=== PATIENT | female | born 1935 | race Caucasian/White ===

== ENCOUNTER 2017-09-04 08:42 | Inpatient (IN) | payer MEDICARE, BC ==
[2017-09-04] MEDS ORDERED: Cholecalciferol (Vitamin D3) 1,000 Unit Tab PO PRN (16:39)
[2017-09-04] MEDS: Insulin Aspart 100 Units/ML 3 ML Pen SUBCUT SCH ×3 (18:34→23:06)
[2017-09-04] MEDS: traMADol 50 MG Tab PO PRN (20:04)
[2017-09-04] MEDS: Warfarin 2 MG Tab PO SCH (20:06)
[2017-09-04] MEDS: Rosuvastatin 10 MG Tab PO SCH (20:07)
[2017-09-04] MEDS: Gabapentin 100 MG Cap PO SCH (20:07)
[2017-09-04] MEDS: Omeprazole 20 MG Cap.CR PO SCH (20:08)
[2017-09-04] MEDS: Montelukast 10 MG Tab PO SCH (20:08)
[2017-09-04] MEDS: Cholecalciferol (Vitamin D3) 1,000 Unit Tab PO SCH (20:08)
[2017-09-04] MEDS: Fluticasone Propionate 110 MCG/Puff 12 GM Inhaler INH SCH (20:16)
[2017-09-04] MEDS ORDERED: [UNRECOGNIZED DRUG - REMARK] SQ SCH (21:00)
[2017-09-05] MEDS: traMADol 50 MG Tab PO PRN ×4 (03:48→17:36)
[2017-09-05] MEDS: Metoprolol Succinate 25 MG Tab.ER PO SCH (08:29)
[2017-09-05] MEDS: Multivitamins with Minerals/Iron/Folic Acid/Lycopene Tab PO SCH (08:29)
[2017-09-05] MEDS: amLODIPine 2.5 MG Tab PO SCH (08:31)
[2017-09-05] MEDS: Gabapentin 100 MG Cap PO SCH ×2 (08:31→20:47)
[2017-09-05] MEDS: Fluticasone Propionate 110 MCG/Puff 12 GM Inhaler INH SCH ×2 (08:32→20:48)
[2017-09-05] MEDS: Insulin Aspart 100 Units/ML 3 ML Pen SUBCUT SCH ×4 (08:32→21:36)
[2017-09-05] MEDS: Insulin Detemir 100 Units/ML 3 ML Pen SUBCUT SCH (08:39)
[2017-09-05] MEDS ORDERED: Non-Formulary Medication 1 Each (Multivit-Min/Fa/Lycopene/Lut [Centrum Silver Tablet] 1 TA PO SCH (09:00)
[2017-09-05] MEDS: Warfarin 2 MG Tab PO SCH (18:08)
[2017-09-05] MEDS: Rosuvastatin 10 MG Tab PO SCH (20:47)
[2017-09-05] MEDS: Omeprazole 20 MG Cap.CR PO SCH (20:47)
[2017-09-05] MEDS: Montelukast 10 MG Tab PO SCH (20:47)
[2017-09-05] MEDS: Cholecalciferol (Vitamin D3) 1,000 Unit Tab PO SCH (20:47)
[2017-09-06] MEDS: traMADol 50 MG Tab PO PRN (01:20)
[2017-09-06] MEDS: Insulin Aspart 100 Units/ML 3 ML Pen SUBCUT SCH ×4 (09:50→21:00)
[2017-09-06] MEDS: Fluticasone Propionate 110 MCG/Puff 12 GM Inhaler INH SCH ×3 (09:55→20:47)
[2017-09-06] MEDS: Multivitamins with Minerals/Iron/Folic Acid/Lycopene Tab PO SCH (12:53)
[2017-09-06] MEDS: Gabapentin 100 MG Cap PO SCH ×2 (12:53→20:48)
[2017-09-06] MEDS: Metoprolol Succinate 25 MG Tab.ER PO SCH (12:59)
[2017-09-06] MEDS: Insulin Detemir 100 Units/ML 3 ML Pen SUBCUT SCH (13:00)
[2017-09-06] MEDS: amLODIPine 2.5 MG Tab PO SCH (13:00)
--- NOTE | 2017-09-06 14:04 | PCM.HP ---
H&P History of Present Illness - General Admit Problem/Dx: Admission Diagnosis/Problem Admission Diagnosis/Problem Left Total Knee Replacement Source of Information: Patient History Limitations: Reports: No Limitations - History of Present Illness Symptom Onset Date: 09/01/17 (Left TKA 09/01/17) Location: Reports: Lower Extremity, Left (L)TKA) Left Knee Pain Score (Numeric/FACES): 5 - Related Data Allergies/Adverse Reactions: Allergies Allergy/AdvReac Type Severity Reaction Status Date / Time metformin HCl Allergy Unknown Cannot Verified 09/04/17 13:33 [From Glucophage] Remember ampicillin Allergy Hives Verified 09/04/17 13:33 cefadroxil Allergy Blurred Verified 09/04/17 13:33 Vision naproxen sodium [From Aleve] Allergy Itching Verified 09/04/17 13:33 rivaroxaban [From Xarelto] Allergy Blurred Verified 09/04/17 13:33 Vision shellfish derived Allergy Hives Verified 09/04/17 13:33 decongestants Allergy Syncope Uncoded 09/04/17 13:33 Home Medications: Home Meds Montelukast [Singulair] 10 mg PO BEDTIME 05/25/14 [History] Omeprazole 20 mg PO BEDTIME 05/25/14 [History] Fluticasone Propionate [Flovent HFA 110 MCG] 2 puff PO BID 07/22/16 [History] Gabapentin [Neurontin] 200 mg PO BID 07/22/16 [History] Insulin Degludec [Tresiba Flextouch U-100] 34 units SQ BEDTIME 07/22/16 [History ] Rosuvastatin [Crestor] 20 mg PO BEDTIME 07/22/16 [History] SitaGLIPtin [Januvia] 50 mg PO DAILY 07/22/16 [History] Valsartan 80 mg PO BEDTIME 07/22/16 [History] amLODIPine [Norvasc] 2.5 mg PO DAILY 07/22/16 [History] Metoprolol Succinate [Toprol XL] 12.5 mg PO DAILY 09/03/17 [History] Rup Rub 1 mg TOP BID 09/03/17 [History] Cholecalciferol (Vitamin D3) [Vitamin D3] 1,000 unit PO BEDTIME 09/04/17 [ History] Multivit-Min/FA/Lycopene/Lut [Centrum Silver Tablet] 1 tab PO DAILY 09/04/17 [ History] Sennosides/Docusate Sodium [Senna S Tablet] 2 tab PO DAILY 09/04/17 [History] Warfarin [Coumadin] 2 mg PO BEDTIME 09/04/17 [History] traMADol [Ultram] 50 - 100 mg PO Q6H PRN 09/04/17 [History] Past Medical History HEENT History: Reports: Cataract, Impaired Vision Cardiovascular History: Reports: Blood Clots/VTE/DVT, CAD, High Cholesterol, Hypertension Respiratory History: Reports: Pneumothorax, SOB Gastrointestinal History: Reports: GERD Genitourinary History: Reports: Renal Disease [employer] History: Reports: , Prolapsed Uterus Musculoskeletal History: Reports: Arthritis, Osteoarthritis, Osteoporosis Neurological History: Reports: Migraines, Neuropathy, Peripheral Endocrine/Metabolic History: Reports: Diabetes, Type II, Obesity/BMI 30+, Osteoporosis, Vitamin D Deficiency Oncologic (Cancer) History: Reports: Lung, Other (See Below) Other Oncologic History: left lung cancer, lower lobectomy - Infectious Disease History Infectious Disease History: Reports: Chicken Pox, Influenza, Measles, Mumps, Shingles - Past Surgical History HEENT Surgical History: Reports: Cataract Surgery Respiratory Surgical History: Reports: Lung Resection, Thoracotomy GI Surgical History: Reports: Appendectomy, Cholecystectomy, Colonoscopy Female Surgical History: Reports: Hysterectomy, Oophorectomy, Other (See Below) Neurological Surgical History: Reports: None Musculoskeletal Surgical History: Reports: Hip Replacement, Knee Replacement, Shoulder Replacement, Shoulder Surgery Other Musculoskeletal Surgeries/Procedures:: s/p LTKA here for swingbed Social & Family History - Family History Family Medical History: Noncontributory - Tobacco Use Smoking Status *Q: Former Smoker Years of Tobacco use: 20 Used Tobacco, but Quit: Yes Month Tobacco Last Used: Oct Second Hand Smoke Exposure: No - Caffeine Use Caffeine Use: Reports: Coffee - Alcohol Use Days Per Week of Alcohol Use: 0 - Recreational Drug Use Recreational Drug Use: No H&P Review of Systems - Review of Systems: Review Of Systems: See Below General: Reports: Other (Generalized feeling poorly after anesthesia with poor appetite, stomach doesn't feel good.) HEENT: Reports: No Symptoms Pulmonary: Reports: No Symptoms Cardiovascular: Reports: No Symptoms Gastrointestinal: Reports: Other (constipation and upset stomach. Improved after BM) Genitourinary: Reports: No Symptoms Musculoskeletal: Reports: Other (S/P Left TKA.) Skin: Reports: Other (Surgical inscision and knee swelling) Psychiatric: Reports: No Symptoms Neurological: Reports: No Symptoms Hematologic/Lymphatic: Reports: No Symptoms Immunologic: Reports: No Symptoms Exam - Exam Exam: See Below - Vital Signs Vital Signs: Last Vital Signs Temp 98.1 F 09/06/17 12:56 Pulse 86 09/06/17 12:59 Resp 16 09/06/17 12:56 BP 168/71 H 09/06/17 13:00 Pulse Ox 98 09/06/17 12:56 Weight: 195 lb 8 oz - Exam General: Alert, Oriented, Cooperative HEENT: Hearing Intact, Mucosa Moist & [place] Neck: Supple, Lymphadenopathy Lungs: Clear to Auscultation, Normal Respiratory Effort Cardiovascular: Regular Rate, Regular Rhythm, Normal S1, Normal S2 GI/Abdominal Exam: Soft, Non-Tender, No Distention Extremities: Other (wearing tavo support hose. Left knee with cold cirulation in place. Extremities with trace edema.) Skin: Other (incision not visualized) Neuro Extensive - Mental Status: Alert, Oriented x3, Normal Mood/Affect, Normal Cognition Psychiatric: Alert, Normal Affect, Normal Mood - Patient Data Lab Results Last 24 hrs: Laboratory Results - last 24 hr 09/05/17 09/05/17 09/06/17 Range/Units 17:35 20:43 06:53 POC Glucose 136 H 128 H 129 H (74-106) mg/dl Jamar Results Last 24 hrs: Microbiology 09/05/17 09:00 Wound Culture - Preliminary Knee, Left NO GROWTH AFTER 1 DAY *Q Meaningful Use (ADM) - VTE *Q VTE Criteria *Q: - Stroke *Q Stroke Criteria *Q: - AMI *Q AMI Criteria *Q: Problem List Initiated/Reviewed/Updated: Yes Orders Last 24hrs: Active Orders 24 hr Category Date Time Status INR,PT,PROTHROMBIN TIME [COAG] Routine Lab 09/07/17 05:00 Ordered Medication Orders Amlodipine Besylate (Norvasc) 2.5 mg PO DAILY [facility] Last Admin: 09/06/17 13:00 Dose: 2.5 mg Admin: 09/05/17 08:31 Dose: 2.5 mg Cholecalciferol (Vitamin D3) 1,000 units PO BEDTIME [facility] Last Admin: 09/05/17 20:47 Dose: 1,000 units Admin: 09/04/17 20:08 Dose: 1,000 units Fluticasone Propionate (Flovent Hfa 110 Mcg) 0 gm INH BIDRT [facility] Last Admin: 09/06/17 13:02 Dose: 2 puff Admin: 09/06/17 09:55 Dose: Not Given Admin: 09/05/17 20:48 Dose: 2 puff Admin: 09/05/17 08:32 Dose: 2 puff Admin: 09/04/17 20:16 Dose: 2 puff Gabapentin (Neurontin) 200 mg PO BID [facility] Last Admin: 09/06/17 12:53 Dose: 200 mg Admin: 09/05/17 20:47 Dose: 200 mg Admin: 09/05/17 08:31 Dose: 200 mg Admin: 09/04/17 20:07 Dose: 200 mg Insulin Aspart (Novolog) 0 unit SUBCUT WITHMEALSANDBED [facility] PRN Reason: Protocol Last Admin: 09/06/17 13:02 Dose: Admin: 09/06/17 09:50 Dose: Admin: 09/05/17 21:36 Dose: Admin: 09/05/17 17:37 Dose: Admin: 09/05/17 12:05 Dose: 1 unit Admin: 09/05/17 08:32 Dose: Admin: 09/04/17 23:06 Dose: Not Given Admin: 09/04/17 20:53 Dose: 1 unit Admin: 09/04/17 18:34 Dose: Insulin Detemir (Levemir) 20 unit SUBCUT DAILY [facility] Last Admin: 09/06/17 13:00 Dose: 20 unit Admin: 09/05/17 08:39 Dose: 20 unit Metoprolol Succinate (Toprol Xl) 12.5 mg PO DAILY [facility] Last Admin: 09/06/17 12:59 Dose: 12.5 mg Admin: 09/05/17 08:29 Dose: 12.5 mg Montelukast Sodium (Singulair) 10 mg PO BEDTIME [facility] Last Admin: 09/05/17 20:47 Dose: 10 mg Admin: 09/04/17 20:08 Dose: 10 mg Multivitamins/Minerals (Centrum) 1 tab PO DAILY [facility] Last Admin: 09/06/17 12:53 Dose: Not Given Admin: 09/05/17 08:29 Dose: 1 tab Non-FormRup Rub (1 Mg) 1 mg TOP BID [facility] Omeprazole (Omeprazole) 20 mg PO BEDTIME [facility] Last Admin: 09/05/17 20:47 Dose: 20 mg Admin: 09/04/17 20:08 Dose: 20 mg Rosuvastatin Calcium (Crestor) 20 mg PO BEDTIME [facility] Last Admin: 09/05/17 20:47 Dose: 20 mg Admin: 09/04/17 20:07 Dose: 20 mg Senna/Docusate Sodium (Senna Plus) 2 tab PO DAILY [facility] Last Admin: 09/06/17 12:53 Dose: Not Given Admin: 09/05/17 08:29 Dose: 2 tab Sitagliptin Phosphate (Januvia) 50 mg PO DAILY [facility] Last Admin: 09/06/17 12:52 Dose: 50 mg Admin: 09/05/17 08:31 Dose: 50 mg Tramadol HCl (Ultram) 50 - 100 mg PO Q6H PRN PRN Reason: Pain Last Admin: 09/06/17 01:20 Dose: 50 mg Admin: 09/05/17 17:36 Dose: 50 mg Admin: 09/05/17 10:30 Dose: 50 mg Admin: 09/05/17 08:40 Dose: 50 mg Admin: 09/05/17 03:48 Dose: 50 mg Admin: 09/04/17 20:04 Dose: 50 mg Valsartan (Diovan) 80 mg PO BEDTIME [facility] Last Admin: 09/05/17 20:46 Dose: 80 mg Admin: 09/04/17 20:07 Dose: 80 mg Warfarin Sodium (Coumadin) 2 mg PO DAILY@1800 [facility] Last Admin: 09/05/17 18:08 Dose: 2 mg Admin: 09/04/17 20:06 Dose: 2 mg Assessment/Plan Comment:: Pt is admitted to Swing bed 09/04/17 for rehab status post L)TKA 09/01/[address] Worthington in [place]. She will be receiving PT. She is on coumadin for DVT prophylaxis. 1) L) TKA: PT for rehab. cold circulation for edema, coumadin for DVT prophylaxis, tramadol prn pain. 2. Hypertension: stable. Continue Valsartan 80 mg at hs, metoprolol succinate 12.5 mg daily, amlodipine 2.5 mg daily. 3. Diabetes mellitus with peripheral neuropathy: Continue levemir 20 units as she was on in [facility]. sitagliptin and Novolog low dose sliding scale. Pt had been on Tresiba 34 units at home but states her appetite is very poor, she is not eating well after anesthesia. Bedside Blood sugars have been 128-137. Continue gabapentin for peripheral neuropathy 4. Hyperlipidemia: continue crestor 5. GERD: continue omeprazole. 6. Osteopenia: continue Vitamin D3 7. Constipation on opioids: continue Ducosate 8. Seasonal allergies with nasal congestions: continue flonase and montelukast
[2017-09-06] MEDS: Warfarin 2 MG Tab PO SCH (18:09)
[2017-09-06] MEDS: Rosuvastatin 10 MG Tab PO SCH (20:47)
[2017-09-06] MEDS: Montelukast 10 MG Tab PO SCH (20:47)
[2017-09-06] MEDS: Omeprazole 20 MG Cap.CR PO SCH (20:48)
[2017-09-06] MEDS: Cholecalciferol (Vitamin D3) 1,000 Unit Tab PO SCH (20:52)
[2017-09-07] MEDS: Insulin Detemir 100 Units/ML 3 ML Pen SUBCUT SCH (08:30)
[2017-09-07] MEDS: Metoprolol Succinate 25 MG Tab.ER PO SCH (08:31)
[2017-09-07] MEDS: amLODIPine 2.5 MG Tab PO SCH (08:32)
[2017-09-07] MEDS: Gabapentin 100 MG Cap PO SCH ×2 (08:32→20:51)
[2017-09-07] MEDS: traMADol 50 MG Tab PO PRN ×2 (08:32→20:51)
[2017-09-07] MEDS: Multivitamins with Minerals/Iron/Folic Acid/Lycopene Tab PO SCH (08:32)
[2017-09-07] MEDS: Insulin Aspart 100 Units/ML 3 ML Pen SUBCUT SCH ×4 (08:37→20:59)
[2017-09-07] MEDS: Fluticasone Propionate 110 MCG/Puff 12 GM Inhaler INH SCH ×2 (08:51→20:51)
[2017-09-07] MEDS: [UNRECOGNIZED DRUG - REMARK] TOP SCH ×2 (14:20→14:21)
[2017-09-07] MEDS: Warfarin 5 MG Tab PO SCH (18:12)
[2017-09-07] MEDS: Rosuvastatin 10 MG Tab PO SCH (20:51)
[2017-09-07] MEDS: Montelukast 10 MG Tab PO SCH (20:52)
[2017-09-07] MEDS: Omeprazole 20 MG Cap.CR PO SCH (20:52)
[2017-09-07] MEDS: Cholecalciferol (Vitamin D3) 1,000 Unit Tab PO SCH (20:52)
[2017-09-08] MEDS: [UNRECOGNIZED DRUG - REMARK] TOP SCH ×2 (03:43→03:44)
[2017-09-08] MEDS: Fluticasone Propionate 110 MCG/Puff 12 GM Inhaler INH SCH ×2 (07:40→19:43)
[2017-09-08] MEDS: Gabapentin 100 MG Cap PO SCH ×2 (08:17→20:50)
[2017-09-08] MEDS: amLODIPine 2.5 MG Tab PO SCH (08:17)
[2017-09-08] MEDS: Metoprolol Succinate 25 MG Tab.ER PO SCH (08:17)
[2017-09-08] MEDS: Multivitamins with Minerals/Iron/Folic Acid/Lycopene Tab PO SCH (08:17)
[2017-09-08] MEDS: Insulin Aspart 100 Units/ML 3 ML Pen SUBCUT SCH ×4 (08:19→21:32)
[2017-09-08] MEDS ORDERED: Ondansetron 4 MG Tab.DIS PO PRN (10:00)
[2017-09-08] MEDS: Insulin Detemir 100 Units/ML 3 ML Pen SUBCUT SCH (12:06)
[2017-09-08] MEDS: Warfarin 5 MG Tab PO SCH (17:39)
[2017-09-08] MEDS: Acetaminophen 325 MG Tab PO PRN (18:02)
[2017-09-08] MEDS: Rosuvastatin 10 MG Tab PO SCH (20:49)
[2017-09-08] MEDS: Omeprazole 20 MG Cap.CR PO SCH (20:51)
[2017-09-08] MEDS: Montelukast 10 MG Tab PO SCH (20:51)
[2017-09-08] MEDS: Cholecalciferol (Vitamin D3) 1,000 Unit Tab PO SCH (20:52)
[2017-09-08] MEDS: TRESIBA 100 UNIT/ML SUBCUT SCH (21:30)
[2017-09-09] MEDS: Acetaminophen 325 MG Tab PO PRN (04:22)
[2017-09-09] MEDS: Insulin Aspart 100 Units/ML 3 ML Pen SUBCUT SCH ×4 (08:07→21:13)
[2017-09-09] MEDS: Metoprolol Succinate 25 MG Tab.ER PO SCH (08:09)
[2017-09-09] MEDS: Multivitamins with Minerals/Iron/Folic Acid/Lycopene Tab PO SCH (08:10)
[2017-09-09] MEDS: Gabapentin 100 MG Cap PO SCH ×2 (08:10→21:16)
[2017-09-09] MEDS: amLODIPine 2.5 MG Tab PO SCH (08:10)
[2017-09-09] MEDS: Fluticasone Propionate 110 MCG/Puff 12 GM Inhaler INH SCH ×2 (08:23→21:11)
[2017-09-09] MEDS: Warfarin 5 MG Tab PO SCH (17:58)
[2017-09-09] MEDS: TRESIBA 100 UNIT/ML SUBCUT SCH (21:12)
[2017-09-09] MEDS: Rosuvastatin 10 MG Tab PO SCH (21:16)
[2017-09-09] MEDS: Montelukast 10 MG Tab PO SCH (21:17)
[2017-09-09] MEDS: Cholecalciferol (Vitamin D3) 1,000 Unit Tab PO SCH (21:17)
[2017-09-09] MEDS: Omeprazole 20 MG Cap.CR PO SCH (21:17)
[2017-09-10] MEDS: Acetaminophen 325 MG Tab PO PRN ×2 (00:19→21:55)
[2017-09-10] MEDS: Multivitamins with Minerals/Iron/Folic Acid/Lycopene Tab PO SCH (08:10)
[2017-09-10] MEDS: Insulin Aspart 100 Units/ML 3 ML Pen SUBCUT SCH ×4 (08:10→21:59)
[2017-09-10] MEDS: Metoprolol Succinate 25 MG Tab.ER PO SCH (08:11)
[2017-09-10] MEDS: amLODIPine 2.5 MG Tab PO SCH (08:12)
[2017-09-10] MEDS: Gabapentin 100 MG Cap PO SCH ×2 (08:16→21:53)
--- NOTE | 2017-09-10 09:14 | PCM.PN ---
- General Info Date of Service: 09/10/17 Functional Status: Reports: Pain Controlled, Tolerating Diet, Ambulating, New Symptoms (Had some dizziness yesterday that she contribute to her inhaler), Incentive Spirometry - Review of Systems General: Denies: Fever, Weakness, Fatigue, Appetite HEENT: Reports: No Symptoms Pulmonary: Reports: Shortness of Breath (Usually on exertion,) Cardiovascular: Reports: No Symptoms Gastrointestinal: Reports: No Symptoms Genitourinary: Reports: No Symptoms Musculoskeletal: Denies: Joint Swelling Skin: Reports: Other ([place] intact, left knee. ) Neurological: Reports: Difficulty Walking, Gait Disturbance Psychiatric: Reports: No Symptoms - Patient Data Vitals - Most Recent: Last Vital Signs Temp 97.0 F 09/10/17 06:58 Pulse 72 09/10/17 08:11 Resp 16 09/10/17 06:58 BP 158/65 H 09/10/17 08:12 Pulse Ox 95 09/10/17 06:58 Weight - Most Recent: 195 lb 8 oz I&O - Last 24 Hours: Intake & Output 09/09/17 09/10/17 09/10/17 22:59 06:59 14:59 Intake Total 320 300 Balance 320 300 Lab Results Last 24 Hours: Laboratory Results - last 24 hr 09/09/17 09/09/17 09/09/17 Range/Units 09:22 11:31 17:29 POC Glucose 239 H 197 H 190 H (74-106) mg/dl 09/09/17 09/09/17 09/10/17 Range/Units 21:05 22:20 06:46 POC Glucose 253 H 59 L 169 H (74-106) mg/dl Med Orders - Current: Current Medications Acetaminophen (Tylenol) 650 mg PO Q6H PRN PRN Reason: Pain Last Admin: 09/10/17 00:19 Dose: 650 mg Amlodipine Besylate (Norvasc) 2.5 mg PO DAILY [facility] Last Admin: 09/10/17 08:12 Dose: 2.5 mg Cholecalciferol (Vitamin D3) 1,000 units PO BEDTIME [facility] Last Admin: 09/09/17 21:17 Dose: 1,000 units Fluticasone Propionate (Flovent Hfa 110 Mcg) 0 gm INH BIDRT [facility] Last Admin: 09/09/17 21:11 Dose: 2 puff Gabapentin (Neurontin) 200 mg PO BID [facility] Last Admin: 09/10/17 08:16 Dose: 200 mg Insulin Aspart (Novolog) 0 unit SUBCUT WITHMEALSANDBED [facility] PRN Reason: Protocol Last Admin: 09/10/17 08:10 Dose: 1 unit Metoprolol Succinate (Toprol Xl) 12.5 mg PO DAILY [facility] Last Admin: 09/10/17 08:11 Dose: 12.5 mg Montelukast Sodium (Singulair) 10 mg PO BEDTIME [facility] Last Admin: 09/09/17 21:17 Dose: 10 mg Multivitamins/Minerals (Centrum) 1 tab PO DAILY [facility] Last Admin: 09/10/17 08:10 Dose: 1 tab Omeprazole (Omeprazole) 20 mg PO BEDTIME [facility] Last Admin: 09/09/17 21:17 Dose: 20 mg Ondansetron HCl (Zofran Odt) 4 mg PO Q4H PRN PRN Reason: Nausea/Vomiting Ptom Tresiba ( Insulin Degludec) 100units/Ml Pen 32 each SUBCUT BEDTIME [facility] Last Admin: 09/09/17 21:12 Dose: 32 each Rosuvastatin Calcium (Crestor) 20 mg PO BEDTIME [facility] Last Admin: 09/09/17 21:16 Dose: 20 mg Senna/Docusate Sodium (Senna Plus) 2 tab PO DAILY [facility] Last Admin: 09/10/17 08:12 Dose: 2 tab Sitagliptin Phosphate (Januvia) 50 mg PO DAILY [facility] Last Admin: 09/10/17 08:09 Dose: 50 mg Tramadol HCl (Ultram) 50 - 100 mg PO Q6H PRN PRN Reason: Pain Last Admin: 09/07/17 20:51 Dose: 50 mg Valsartan (Diovan) 160 mg PO BEDTIME [facility] Last Admin: 09/09/17 21:25 Dose: 160 mg Warfarin Sodium (Pharmacy To Dose - Warfarin) 1 dose .XX ASDIRECTED [facility] Warfarin Sodium (Coumadin) 5 mg PO DAILY@1800 [facility] Last Admin: 09/09/17 17:58 Dose: 5 mg Discontinued Medications Cholecalciferol (Vitamin D3) 1,000 units PO BEDTIME PRN PRN Reason: Pain Insulin Detemir (Levemir) 20 unit SUBCUT DAILY [facility] Last Admin: 09/08/17 12:06 Dose: Not Given Non-Form Tresiba (34 Units) 34 units SQ BEDTIME [facility] Non-Formulary Medication (Multivit-Min/Fa/Lycopene/Lut [Centrum Silver Tablet]) 1 tab PO DAILY [facility] Non-FormRup Rub (1 Mg) 1 mg TOP BID [facility] Last Admin: 09/08/17 03:44 Dose: Not Given Valsartan (Diovan) 80 mg PO BEDTIME [facility] Last Admin: 09/06/17 20:48 Dose: 80 mg Valsartan (Diovan) 160 mg PO BEDTIME [facility] Warfarin Sodium (Coumadin) 2 mg PO DAILY@1800 [facility] Last Admin: 09/06/17 18:09 Dose: 2 mg - Exam Quality Assessment: No: Supplemental Oxygen, Skin Breakdown General: Alert, Oriented Neck: Supple Lungs: Clear to Auscultation, Normal Respiratory Effort Cardiovascular: Regular Rate, Regular Rhythm GI/Abdominal Exam: Soft (Female) Exam: Deferred Back Exam: No: CVA Tenderness (L), CVA Tenderness (R) Extremities: No: Pedal Edema Skin: Warm, Dry, Intact, Other ([place] intact, dressing clean dry no wound dehiscence, good distal pulses left leg) Neurological: Sensation Intact - Problem List Review Problem List Initiated/Reviewed/Updated: Yes - My Orders Last 24 Hours: My Active Orders 09/10/17 07:40 INR,PT,PROTHROMBIN TIME [COAG] Routine - Plan Plan:: This 82-year-old female was admitted into rehabilitation/PT swing bed at [facility] status post Left TKA on 09/01/[address] Worthington in [place]. 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 tramadol prn pain. Secondary impression HTN; stable, on ARB, BB, CCB T2DM; with peripheral neuropathy: Levemir, Sitagliptin and Novolog low dose SS. Monitor, Gabapentin, HLD; Crestor Osteopenia: Vitamin D3 Constipation, continue Ducosate Seasonal allergies with nasal congestions: continue flonase and montelukast Asthma, albuterol intolerant, on Proventil, cross covered with montelukast DVT/PE prophylaxis, Coumadin
[2017-09-10] MEDS: Fluticasone Propionate 110 MCG/Puff 12 GM Inhaler INH SCH ×2 (09:57→21:53)
[2017-09-10] MEDS: Warfarin 5 MG Tab PO SCH (18:19)
[2017-09-10] MEDS: TRESIBA 100 UNIT/ML SUBCUT SCH (21:49)
[2017-09-10] MEDS: Rosuvastatin 10 MG Tab PO SCH (21:51)
[2017-09-10] MEDS: Cholecalciferol (Vitamin D3) 1,000 Unit Tab PO SCH (21:54)
[2017-09-10] MEDS: Omeprazole 20 MG Cap.CR PO SCH (21:54)
[2017-09-10] MEDS: Montelukast 10 MG Tab PO SCH (21:54)
[2017-09-11] MEDS: Insulin Aspart 100 Units/ML 3 ML Pen SUBCUT SCH ×4 (09:00→22:00)
[2017-09-11] MEDS: Multivitamins with Minerals/Iron/Folic Acid/Lycopene Tab PO SCH (10:03)
[2017-09-11] MEDS: Gabapentin 100 MG Cap PO SCH ×2 (10:03→20:45)
[2017-09-11] MEDS: amLODIPine 2.5 MG Tab PO SCH (10:05)
[2017-09-11] MEDS: Metoprolol Succinate 25 MG Tab.ER PO SCH (10:06)
[2017-09-11] MEDS: Fluticasone Propionate 110 MCG/Puff 12 GM Inhaler INH SCH ×2 (10:09→20:51)
[2017-09-11] MEDS: Warfarin 2 MG Tab PO SCH (18:00)
[2017-09-11] MEDS: traMADol 50 MG Tab PO PRN (18:00)
[2017-09-11] MEDS: Rosuvastatin 10 MG Tab PO SCH (20:39)
[2017-09-11] MEDS: Montelukast 10 MG Tab PO SCH (20:46)
[2017-09-11] MEDS: Omeprazole 20 MG Cap.CR PO SCH (20:46)
[2017-09-11] MEDS: Cholecalciferol (Vitamin D3) 1,000 Unit Tab PO SCH (20:46)
[2017-09-11] MEDS: TRESIBA 100 UNIT/ML SUBCUT SCH (20:55)
[2017-09-12] MEDS: traMADol 50 MG Tab PO PRN (02:22)
[2017-09-12] MEDS: Insulin Aspart 100 Units/ML 3 ML Pen SUBCUT SCH ×4 (09:42→21:37)
[2017-09-12] MEDS: Multivitamins with Minerals/Iron/Folic Acid/Lycopene Tab PO SCH (09:48)
[2017-09-12] MEDS: Gabapentin 100 MG Cap PO SCH ×2 (09:49→21:34)
[2017-09-12] MEDS: amLODIPine 2.5 MG Tab PO SCH (09:49)
[2017-09-12] MEDS: Metoprolol Succinate 25 MG Tab.ER PO SCH (09:49)
[2017-09-12] MEDS: Fluticasone Propionate 110 MCG/Puff 12 GM Inhaler INH SCH ×2 (09:54→22:08)
[2017-09-12] MEDS: Warfarin 2 MG Tab PO SCH (17:59)
[2017-09-12] MEDS: Rosuvastatin 10 MG Tab PO SCH (21:30)
[2017-09-12] MEDS: Omeprazole 20 MG Cap.CR PO SCH (21:35)
[2017-09-12] MEDS: Montelukast 10 MG Tab PO SCH (21:35)
[2017-09-12] MEDS: Cholecalciferol (Vitamin D3) 1,000 Unit Tab PO SCH (21:35)
[2017-09-12] MEDS: TRESIBA 100 UNIT/ML SUBCUT SCH (21:39)
[2017-09-13] MEDS: Insulin Aspart 100 Units/ML 3 ML Pen SUBCUT SCH ×4 (08:34→21:00)
[2017-09-13] MEDS: Multivitamins with Minerals/Iron/Folic Acid/Lycopene Tab PO SCH (08:36)
[2017-09-13] MEDS: Fluticasone Propionate 110 MCG/Puff 12 GM Inhaler INH SCH ×2 (08:37→20:42)
[2017-09-13] MEDS: Gabapentin 100 MG Cap PO SCH ×2 (08:37→20:42)
[2017-09-13] MEDS: Metoprolol Succinate 25 MG Tab.ER PO SCH (08:38)
[2017-09-13] MEDS: amLODIPine 2.5 MG Tab PO SCH (08:39)
[2017-09-13] MEDS: Acetaminophen 325 MG Tab PO PRN (16:45)
[2017-09-13] MEDS: Rosuvastatin 10 MG Tab PO SCH (20:41)
[2017-09-13] MEDS: Omeprazole 20 MG Cap.CR PO SCH (20:42)
[2017-09-13] MEDS: Cholecalciferol (Vitamin D3) 1,000 Unit Tab PO SCH (20:43)
[2017-09-13] MEDS: Montelukast 10 MG Tab PO SCH (20:43)
[2017-09-13] MEDS: TRESIBA 100 UNIT/ML SUBCUT SCH (20:44)
[2017-09-14] MEDS: Insulin Aspart 100 Units/ML 3 ML Pen SUBCUT SCH ×5 (07:54→21:05)
[2017-09-14] MEDS: Multivitamins with Minerals/Iron/Folic Acid/Lycopene Tab PO SCH (08:11)
[2017-09-14] MEDS: Gabapentin 100 MG Cap PO SCH ×2 (08:12→20:51)
[2017-09-14] MEDS: Metoprolol Succinate 25 MG Tab.ER PO SCH (08:12)
[2017-09-14] MEDS: amLODIPine 2.5 MG Tab PO SCH (08:13)
[2017-09-14] MEDS: Fluticasone Propionate 110 MCG/Puff 12 GM Inhaler INH SCH ×2 (08:44→20:50)
[2017-09-14] MEDS: Warfarin 2 MG Tab PO SCH (18:05)
[2017-09-14] MEDS: Rosuvastatin 10 MG Tab PO SCH (20:50)
[2017-09-14] MEDS: Omeprazole 20 MG Cap.CR PO SCH (20:51)
[2017-09-14] MEDS: TRESIBA 100 UNIT/ML SUBCUT SCH (20:51)
[2017-09-14] MEDS: Montelukast 10 MG Tab PO SCH (20:52)
[2017-09-14] MEDS: Cholecalciferol (Vitamin D3) 1,000 Unit Tab PO SCH (20:52)
[2017-09-15] MEDS: Insulin Aspart 100 Units/ML 3 ML Pen SUBCUT SCH ×4 (08:00→21:09)
[2017-09-15] MEDS: Multivitamins with Minerals/Iron/Folic Acid/Lycopene Tab PO SCH (08:01)
[2017-09-15] MEDS: Gabapentin 100 MG Cap PO SCH ×2 (08:01→21:02)
[2017-09-15] MEDS: Metoprolol Succinate 25 MG Tab.ER PO SCH (08:02)
[2017-09-15] MEDS: amLODIPine 2.5 MG Tab PO SCH (08:02)
[2017-09-15] MEDS: Fluticasone Propionate 110 MCG/Puff 12 GM Inhaler INH SCH ×2 (11:15→21:01)
[2017-09-15] MEDS: Warfarin 2 MG Tab PO SCH (18:19)
[2017-09-15] MEDS: Rosuvastatin 10 MG Tab PO SCH (21:08)
[2017-09-15] MEDS: Cholecalciferol (Vitamin D3) 1,000 Unit Tab PO SCH (21:08)
[2017-09-15] MEDS: Omeprazole 20 MG Cap.CR PO SCH (21:09)
[2017-09-15] MEDS: Montelukast 10 MG Tab PO SCH (21:09)
[2017-09-15] MEDS: TRESIBA 100 UNIT/ML SUBCUT SCH (21:10)
[2017-09-15] MEDS: traMADol 50 MG Tab PO PRN (22:24)
[2017-09-15] MEDS: Acetaminophen 325 MG Tab PO PRN (22:28)
[2017-09-16] MEDS: Insulin Aspart 100 Units/ML 3 ML Pen SUBCUT SCH ×4 (08:06→21:08)
[2017-09-16] MEDS: Gabapentin 100 MG Cap PO SCH ×2 (08:08→21:05)
[2017-09-16] MEDS: Multivitamins with Minerals/Iron/Folic Acid/Lycopene Tab PO SCH (08:09)
[2017-09-16] MEDS: Metoprolol Succinate 25 MG Tab.ER PO SCH (08:09)
[2017-09-16] MEDS: amLODIPine 2.5 MG Tab PO SCH (08:09)
[2017-09-16] MEDS ORDERED: INSULIN DEGLUDEC 100 UNIT/ML SUBCUT SCH (09:33)
[2017-09-16] MEDS: Fluticasone Propionate 110 MCG/Puff 12 GM Inhaler INH SCH ×2 (10:27→21:05)
--- NOTE | 2017-09-16 10:53 | PCM.DCSUM1 ---
Discharge Summary - Hospital Course Free Text/Narrative:: Date of admission: 09/04/17 Date of discharge: 09/17/17 Admission diagnoses: 1. Debility s/p left total knee arthroplasty 2. Hypertension 3. Diabetes mellitus, type 2, with peripheral neuropathy 4. Hyperlipidemia 5. GERD 6. Constipation 7. Osteopenia 8. Seasonal allergic rhinitis Discharge diagnoses: 1. Debility s/p left total knee arthroplasty 2. Hypertension 3. Diabetes mellitus, type 2, with peripheral neuropathy 4. Hyperlipidemia 5. GERD 6. Constipation 7. Osteopenia 8. Seasonal allergic rhinitis Consultations: Physical therapy Procedures: None Hospital course: Ms. Shipley is an 82yoF admitted to swing bed for rehabilitation due to debility s/p left total knee arthroplasty on 09/01/[address] Wrothington at [facility]. She was continued on her home medications, in addition to warfarin for DVT prophylaxis and analgesics for pain control, throughout her stay; the only changes in her regimen were an increase in her valsartan to 240mg daily and Tresiba to 36un daily due to elevated blood pressures and blood glucoses, respectively. She received physical therapy throughout her stay and had excellent clinical improvement and was deemed ready for discharge back to home on 09/17/17. She will follow-up with PCP MATT Dobbins, in 1- [address] Worthington as planned. - Discharge Data Discharge Date: 09/17/17 Discharge Disposition: Home, Self-Care 01 Condition: Good - Patient Summary/Data Consults: Consultations 09/04/17 13:23 PT Evaluation and Treatment [CONS] Routine - Patient Instructions Diet: Usual Diet as Tolerated Activity: Apply Ice, As Tolerated Showering/Bathing: May Shower Wound/Incision Care: Keep Operative Site/Wound Site Clean and Dry, Change Dressing Daily Notify Provider of: Fever, Increased Pain, Swelling and Redness, Drainage, Nausea and/or Vomiting - Discharge Plan Prescriptions/Med Rec: Insulin Degludec [Tresiba Flextouch U-100] 36 units SQ BEDTIME #10 pen traMADol [Ultram] 50 mg PO Q6H PRN #20 tablet PRN Reason: Pain Valsartan 240 mg PO BEDTIME #90 tablet Warfarin [Coumadin] 4 mg PO DAILY@1800 14 Days #28 tablet Home Medications: Home Meds Montelukast [Singulair] 10 mg PO BEDTIME 05/25/14 [History] Omeprazole 20 mg PO BEDTIME 05/25/14 [History] Fluticasone Propionate [Flovent HFA 110 MCG] 2 puff PO BID 07/22/16 [History] Gabapentin [Neurontin] 200 mg PO BID 07/22/16 [History] Rosuvastatin [Crestor] 20 mg PO BEDTIME 07/22/16 [History] SitaGLIPtin [Januvia] 50 mg PO DAILY 07/22/16 [History] amLODIPine [Norvasc] 2.5 mg PO DAILY 07/22/16 [History] Metoprolol Succinate [Toprol XL] 12.5 mg PO DAILY 09/03/17 [History] Rup Rub 1 mg TOP BID 09/03/17 [History] Cholecalciferol (Vitamin D3) [Vitamin D3] 1,000 unit PO BEDTIME 09/04/17 [ History] Multivit-Min/FA/Lycopene/Lut [Centrum Silver Tablet] 1 tab PO DAILY 09/04/17 [ History] Sennosides/Docusate Sodium [Senna S Tablet] 2 tab PO DAILY 09/04/17 [History] Insulin Degludec [Tresiba Flextouch U-100] 36 units SQ BEDTIME #10 pen 09/16/17 [Rx] Valsartan 240 mg PO BEDTIME #90 tablet 09/16/17 [Rx] Warfarin [Coumadin] 4 mg PO DAILY@1800 14 Days #28 tablet 09/16/17 [Rx] traMADol [Ultram] 50 mg PO Q6H PRN #20 tablet 09/16/17 [Rx] Other Amb Orders: PT Evaluation and Treatment [CONS] Location: Determined By Patient Referrals: Janna Berumen, A[employer]MI[employer] [Primary Care Provider] - (1-2 weeks) - Discharge Summary/Plan Comment DC Time >30 min.: Yes - General Info Date of Service: 09/16/17 Admission Dx/Problem (Free Text: Debility s/p left total knee replacement Subjective Update: Ms. Shipley is feeling well today. Activity improving with physical therapy. Had lisandro removed at follow-up visit with Dr. Worthington yesterday. Feels ready to discharge tomorrow morning when her daughter gets to town and will be staying with her for the next week. Using Tylenol and occasional tramadol for pain with good control. ROS: Denies fever, chills, dyspnea, chest pain, abdominal pain, change in appetite, nausea, diarrhea, constipation, or other new complaints. - Patient Data Vitals - Most Recent: Last Vital Signs Temp 36.4 C 09/16/17 06:48 Pulse 67 09/16/17 08:09 Resp 18 09/16/17 06:48 BP 157/65 H 09/16/17 08:09 Pulse Ox 93 L 09/16/17 06:48 Weight - Most Recent: 82.645 kg I&O - Last 24 hours: Intake & Output 09/15/17 09/16/17 09/16/17 22:59 06:59 14:59 Intake Total 400 300 Balance 400 300 Lab Results - Last 24 hrs: Laboratory Results - last 24 hr 09/15/17 09/15/17 09/16/17 Range/Units 11:44 21:07 06:47 PT INR (0.9-1.1) POC Glucose 225 H 398 H 232 H (74-106) mg/dl 09/16/17 Range/Units 07:10 PT TNP INR 2.4 H (0.9-1.1) POC Glucose (74-106) mg/dl Med Orders - Current: Current Medications Acetaminophen (Tylenol) 650 mg PO Q6H PRN PRN Reason: Pain Last Admin: 09/15/17 22:28 Dose: 650 mg Amlodipine Besylate (Norvasc) 2.5 mg PO DAILY [facility] Last Admin: 09/16/17 08:09 Dose: 2.5 mg Cholecalciferol (Vitamin D3) 1,000 units PO BEDTIME [facility] Last Admin: 09/15/17 21:08 Dose: 1,000 units Fluticasone Propionate (Flovent Hfa 110 Mcg) 0 gm INH BID [facility] Last Admin: 09/16/17 10:27 Dose: 2 puff Gabapentin (Neurontin) 200 mg PO BID [facility] Last Admin: 09/16/17 08:08 Dose: 200 mg Insulin Aspart (Novolog) 0 unit SUBCUT WITHMEALSANDBED [facility] PRN Reason: Protocol Last Admin: 09/16/17 08:06 Dose: 2 unit Metoprolol Succinate (Toprol Xl) 12.5 mg PO DAILY [facility] Last Admin: 09/16/17 08:09 Dose: 12.5 mg Montelukast Sodium (Singulair) 10 mg PO BEDTIME [facility] Last Admin: 09/15/17 21:09 Dose: 10 mg Multivitamins/Minerals (Centrum) 1 tab PO DAILY [facility] Last Admin: 09/16/17 08:09 Dose: 1 tab Omeprazole (Omeprazole) 20 mg PO BEDTIME [facility] Last Admin: 09/15/17 21:09 Dose: 20 mg Ondansetron HCl (Zofran Odt) 4 mg PO Q4H PRN PRN Reason: Nausea/Vomiting Ptom Insulin Degludec 100 Unit/Ml Pen 35 each SUBCUT BEDTIME [facility] Rosuvastatin Calcium (Crestor) 20 mg PO BEDTIME [facility] Last Admin: 09/15/17 21:08 Dose: 20 mg Senna/Docusate Sodium (Senna Plus) 2 tab PO DAILY [facility] Last Admin: 09/16/17 08:08 Dose: 2 tab Sitagliptin Phosphate (Januvia) 50 mg PO DAILY [facility] Last Admin: 09/16/17 08:09 Dose: 50 mg Tramadol HCl (Ultram) 50 - 100 mg PO Q6H PRN PRN Reason: Pain Last Admin: 09/15/17 22:24 Dose: 50 mg Valsartan (Diovan) 240 mg PO BEDTIME [facility] Warfarin Sodium (Pharmacy To Dose - Warfarin) 1 dose .XX ASDIRECTED [facility] Warfarin Sodium (Coumadin) 4 mg PO DAILY@1800 [facility] Last Admin: 09/15/17 18:19 Dose: Not Given Discontinued Medications Cholecalciferol (Vitamin D3) 1,000 units PO BEDTIME PRN PRN Reason: Pain Fluticasone Propionate (Flovent Hfa 110 Mcg) 0 gm INH BIDRT [facility] Last Admin: 09/10/17 09:57 Dose: 2 puff Insulin Detemir (Levemir) 20 unit SUBCUT DAILY [facility] Last Admin: 09/08/17 12:06 Dose: Not Given Non-Form Tresiba (34 Units) 34 units SQ BEDTIME [facility] Non-Formulary Medication (Multivit-Min/Fa/Lycopene/Lut [Centrum Silver Tablet]) 1 tab PO DAILY [facility] Non-FormRup Rub (1 Mg) 1 mg TOP BID [facility] Last Admin: 09/08/17 03:44 Dose: Not Given Ptom Tresiba ( Insulin Degludec) 100units/Ml Pen 32 each SUBCUT BEDTIME [facility] Last Admin: 09/15/17 21:10 Dose: 32 each Valsartan (Diovan) 80 mg PO BEDTIME [facility] Last Admin: 09/06/17 20:48 Dose: 80 mg Valsartan (Diovan) 160 mg PO BEDTIME [facility] Valsartan (Diovan) 160 mg PO BEDTIME [facility] Last Admin: 09/15/17 21:02 Dose: 160 mg Warfarin Sodium (Coumadin) 2 mg PO DAILY@1800 [facility] Last Admin: 09/06/17 18:09 Dose: 2 mg Warfarin Sodium (Coumadin) 5 mg PO DAILY@1800 [facility] Last Admin: 09/10/17 18:19 Dose: 5 mg Warfarin Sodium (Coumadin) 4 mg PO DAILY@1800 [facility] Last Admin: 09/12/17 17:59 Dose: 4 mg - Exam Physical Findings Comments:: GENERAL: Well-appearing elderly female sitting in bedside chair in no acute distress. HEENT: Normocephalic, atraumatic. Conjunctiva clear. Mucous membranes moist. NECK: Supple, no masses. CV: Regular rate and rhythm, no murmurs, rubs, or gallops. 2+ radial and pedal pulses. PULMONARY: Normal effort, clear to auscultation bilaterally, no wheezes, rales, or rhonchi. ABDOMEN: Positive bowel sounds, soft, nontender, nondistended. EXTREMITIES: LLE with steri strips in place overlying healing incision, which is clean, dry, and intact. MUSCULOSKELETAL: Ambulates with walker. NEUROLOGICAL: No obvious deficits. Sensation to light touch intact in distal lower extremities. DERMATOLOGIC: No rashes or suspicious lesions in exposed areas. PSYCHIATRIC: Alert, interactive, appropriate affect. *Q Meaningful Use (DIS) - VTE *Q VTE Criteria *Q: - Stroke *Q Stroke Criteria *Q: - AMI *Q AMI Criteria *Q:
[2017-09-16] MEDS ORDERED: [UNRECOGNIZED DRUG - OTHER] SUBCUT SCH (11:18)
[2017-09-16] MEDS ORDERED: INSULIN DEGLUDEC SUBCUT SCH (11:18)
[2017-09-16] MEDS: Warfarin 2 MG Tab PO SCH (18:07)
[2017-09-16] MEDS: Rosuvastatin 10 MG Tab PO SCH (21:03)
[2017-09-16] MEDS: Omeprazole 20 MG Cap.CR PO SCH (21:05)
[2017-09-16] MEDS: Montelukast 10 MG Tab PO SCH (21:08)
[2017-09-16] MEDS: Cholecalciferol (Vitamin D3) 1,000 Unit Tab PO SCH (21:08)
[2017-09-17 06:19] VITALS: BP 162/71
[2017-09-17] MEDS: Insulin Aspart 100 Units/ML 3 ML Pen SUBCUT SCH ×2 (08:04→12:07)
[2017-09-17] MEDS: Metoprolol Succinate 25 MG Tab.ER PO SCH (08:07)
[2017-09-17] MEDS: amLODIPine 2.5 MG Tab PO SCH (08:08)
[2017-09-17] MEDS: Fluticasone Propionate 110 MCG/Puff 12 GM Inhaler INH SCH (08:09)
[2017-09-17] MEDS: Gabapentin 100 MG Cap PO SCH (08:09)
[2017-09-17] MEDS: Multivitamins with Minerals/Iron/Folic Acid/Lycopene Tab PO SCH (08:10)
== END 2017-09-17 13:10 | disposition home or self-care (01) | DRG 561 ==
LOC: KA.MS 14:22
PROVIDERS: ADMIT Nurse Practitioner Family; ATTEND Family Medicine
DX: Z47.1 Aftercare following joint replacement surgery (principal); Z96.652 Presence of left artificial knee joint; I10 Essential (primary) hypertension; E11.42 Type 2 diabetes mellitus with diabetic polyneuropathy; E78.5 Hyperlipidemia, unspecified; K21.9 Gastro-esophageal reflux disease without esophagitis; K59.00 Constipation, unspecified; M85.80 Other specified disorders of bone density and structure, unspecified site; J30.9 Allergic rhinitis, unspecified; I25.10 Atherosclerotic heart disease of native coronary artery without angina pectoris; J45.909 Unspecified asthma, uncomplicated; Z85.118 Personal history of other malignant neoplasm of bronchus and lung; Z87.891 Personal history of nicotine dependence; Z88.8 Allergy status to other drugs, medicaments and biological substances; Z79.899 Other long term (current) drug therapy; Z79.01 Long term (current) use of anticoagulants; Z86.718 Personal history of other venous thrombosis and embolism
CPT/HCPCS: 36415; 36416; 80048; 82962; 85610; 87070; 94640; 94640-76; 97110-GP; 97161-GP; A9270-GY; J1815-GY

== ENCOUNTER 2017-10-30 15:59 | Inpatient (IN) | payer MEDICARE, BC, MEDICAID ==
[2017-10-30] MEDS ORDERED: Sodium Chloride 0.9% 500 ML IV ONE (17:15)
[2017-10-30] MEDS ORDERED: Sodium Chloride 0.9% 1,000 ML IV ONE (17:25)
[2017-10-30] MEDS ORDERED: Iopamidol 755 Mg/ML 75 ML Bottle IVPUSH ONE (18:09)
[2017-10-30] MEDS ORDERED: Sodium Chloride 0.9% 50 ML SDV FLUSH SCH (18:15)
[2017-10-30] MEDS: Iopamidol 755 Mg/ML 75 ML Bottle IVPUSH ONE (18:22)
[2017-10-30] MEDS: Sodium Chloride 0.9% 1,000 ML IV SCH (18:32)
[2017-10-30] MEDS ORDERED: Sulfamethoxazole/Trimethoprim 800-160 MG Tab PO SCH (21:00)
[2017-10-30] MEDS ORDERED: [UNRECOGNIZED DRUG - OTHER] TOP SCH (21:00)
[2017-10-30] MEDS ORDERED: Omeprazole 20 MG Cap.CR PO SCH (21:00)
[2017-10-30] MEDS: Rosuvastatin 10 MG Tab PO SCH (21:14)
[2017-10-30] MEDS: Fluticasone Propionate 110 MCG/Puff 12 GM Inhaler INH SCH (21:17)
[2017-10-30] MEDS: Gabapentin 100 MG Cap PO SCH (21:17)
[2017-10-30] MEDS: INSULIN DEGLUDEC SUBCUT SCH (21:18)
[2017-10-30] MEDS: Montelukast 10 MG Tab PO SCH (21:19)
[2017-10-30] MEDS: Cephalexin 250 MG Cap PO SCH (21:21)
[2017-10-30] MEDS: Apixaban 5 MG Tab PO SCH (21:24)
[2017-10-31] MEDS: Sodium Chloride 0.9% 1,000 ML IV SCH ×2 (06:30→19:57)
[2017-10-31] MEDS: Multivitamins with Minerals/Iron/Folic Acid/Lycopene Tab PO SCH (08:30)
[2017-10-31] MEDS: Aspirin 81 MG Tab.Chew PO SCH (08:30)
[2017-10-31] MEDS: Apixaban 5 MG Tab PO SCH ×2 (08:31→21:19)
[2017-10-31] MEDS: Cephalexin 250 MG Cap PO SCH ×3 (08:31→21:18)
[2017-10-31] MEDS: Gabapentin 100 MG Cap PO SCH ×2 (08:31→21:07)
[2017-10-31] MEDS: amLODIPine 2.5 MG Tab PO SCH (08:32)
[2017-10-31] MEDS: Cholecalciferol (Vitamin D3) 1,000 Unit Tab PO SCH (08:33)
[2017-10-31] MEDS: Metoprolol Succinate 25 MG Tab.ER PO SCH (08:33)
[2017-10-31] MEDS: Fluticasone Propionate 110 MCG/Puff 12 GM Inhaler INH SCH ×2 (08:38→21:12)
--- NOTE | 2017-10-31 15:47 | PCM.PN ---
- General Info Date of Service: 10/31/17 Admission Dx/Problem (Free Text): PE Dehydration UTI Functional Status: Reports: Tolerating Diet, Other (reports has been hesitant to walk because she continues to feel her legs weak.) - Review of Systems General: Reports: Weakness. Denies: Fever HEENT: Reports: No Symptoms, Other (no light headedness, no dizziness.) Pulmonary: Reports: Shortness of Breath (reprts chronic shortness of breath and chronic cough.), Cough Cardiovascular: Reports: No Symptoms Gastrointestinal: Reports: Other (One soft stool--thinks may be beginning to be loose due to antibiotic.) Neurological: Reports: No Symptoms Psychiatric: Reports: No Symptoms - Patient Data Vitals - Most Recent: Last Vital Signs Temp 98.1 F 10/31/17 11:00 Pulse 64 10/31/17 11:00 Resp 16 10/31/17 11:00 BP 147/57 H 10/31/17 11:00 Pulse Ox 95 10/31/17 11:00 Orthostatic Blood Pressure [ 134/65 Standing] Orthostatic Blood Pressure [ 165/73 Sitting] Orthostatic Blood Pressure [ 134/61 Supine] Weight - Most Recent: 179 lb 3.2 oz I&O - Last 24 Hours: Intake & Output 10/31/17 10/31/17 10/31/17 06:59 14:59 22:59 Intake Total 2040 1940 Output Total 2200 1300 Balance -160 640 Lab Results Last 24 Hours: Laboratory Results - last 24 hr 10/30/17 10/31/17 10/31/17 Range/Units 19:40 06:22 07:50 WBC 9.6 (5.0-10.0) 10^3/uL RBC 3.81 (3.80-5.50) 10^6/uL Hgb 10.7 L (12.0-16.0) g/dL Hct 33.6 L (37.0-47.0) % MCV 88.1 (82.0-92.0) fL MCH 28.0 (27.0-31.0) pg MCHC 31.8 L (32.0-36.0) g/dL RDW 14.1 (11.5-14.5) % Plt Count 293 (150-300) 10^3/uL MPV 7.6 (7.4-10.4) fL Neut % (Auto) 76.5 H (50.0-70.0) % Lymph % (Auto) 16.5 L (20.0-40.0) % Haralson % (Auto) 6.2 (2.0-8.0) % Eos % (Auto) 0.5 L (1.0-3.0) % Baso % (Auto) 0.3 (0.0-1.0) % Neut # (Auto) 7.4 H (2.5-7.0) 10^3/uL Lymph # (Auto) 1.6 (1.0-4.0) 10^3/uL Haralson # (Auto) 0.6 (0.1-0.8) 10^3/uL Eos # (Auto) 0.0 L (0.1-0.3) 10^3/uL Baso # (Auto) 0.0 (0.0-0.1) 10^3/uL Sodium (136-145) mmol/L Potassium (3.3-5.3) mmol/L Chloride (98-115) mmol/L Carbon Dioxide (21.0-32.0) mmol/L BUN (6-25) mg/dL Creatinine (0.51-1.17) mg/dL Est Cr Clr Drug Dosing mL/min Estimated GFR (MDRD) mL/min Glucose (70-110) mg/dL POC Glucose 150 H 111 H (74-106) mg/dl Calcium (8.7-10.3) mg/dL 10/31/17 Range/Units 07:50 WBC (5.0-10.0) 10^3/uL RBC (3.80-5.50) 10^6/uL Hgb (12.0-16.0) g/dL Hct (37.0-47.0) % MCV (82.0-92.0) fL MCH (27.0-31.0) pg MCHC (32.0-36.0) g/dL RDW (11.5-14.5) % Plt Count (150-300) 10^3/uL MPV (7.4-10.4) fL Neut % (Auto) (50.0-70.0) % Lymph % (Auto) (20.0-40.0) % Haralson % (Auto) (2.0-8.0) % Eos % (Auto) (1.0-3.0) % Baso % (Auto) (0.0-1.0) % Neut # (Auto) (2.5-7.0) 10^3/uL Lymph # (Auto) (1.0-4.0) 10^3/uL Haralson # (Auto) (0.1-0.8) 10^3/uL Eos # (Auto) (0.1-0.3) 10^3/uL Baso # (Auto) (0.0-0.1) 10^3/uL Sodium 136 (136-145) mmol/L Potassium 6.0 H (3.3-5.3) mmol/L Chloride 105 (98-115) mmol/L Carbon Dioxide 25.3 (21.0-32.0) mmol/L BUN 24 (6-25) mg/dL Creatinine 1.19 H (0.51-1.17) mg/dL Est Cr Clr Drug Dosing 25.28 mL/min Estimated GFR (MDRD) 43 mL/min Glucose 108 (70-110) mg/dL POC Glucose (74-106) mg/dl Calcium 8.6 L (8.7-10.3) mg/dL Med Orders - Current: Current Medications Amlodipine Besylate (Norvasc) 2.5 mg PO DAILY [facility] Last Admin: 10/31/17 08:32 Dose: 2.5 mg Apixaban (Eliquis) 10 mg PO BID [facility] Stop: 11/06/17 09:01 Last Admin: 10/31/17 08:31 Dose: 10 mg Apixaban (Eliquis) 5 mg PO BID [facility] Aspirin (Aspirin) 81 mg PO DAILY [facility] Last Admin: 10/31/17 08:30 Dose: 81 mg Cephalexin (Keflex) 500 mg PO TID [facility] Stop: 11/02/17 14:01 Last Admin: 10/31/17 15:18 Dose: 500 mg Cholecalciferol (Vitamin D3) 2,000 units PO DAILY [facility] Last Admin: 10/31/17 08:33 Dose: 2,000 units Fluticasone Propionate (Flovent Hfa 110 Mcg) 0 gm INH BID [facility] Last Admin: 10/31/17 08:38 Dose: Not Given Gabapentin (Neurontin) 200 mg PO BID [facility] Last Admin: 10/31/17 08:31 Dose: 200 mg Sodium Chloride (Normal Saline) 1,000 mls @ 75 mls/hr IV ASDIRECTED [facility] Last Admin: 10/31/17 06:30 Dose: 75 mls/hr Metoprolol Succinate (Toprol Xl) 12.5 mg PO DAILY [facility] Last Admin: 10/31/17 08:33 Dose: 12.5 mg Montelukast Sodium (Singulair) 10 mg PO BEDTIME [facility] Last Admin: 10/30/17 21:19 Dose: 10 mg Multivitamins/Minerals (Centrum) 1 tab PO DAILY [facility] Last Admin: 10/31/17 08:30 Dose: 1 tab Omeprazole (Omeprazole) 20 mg PO Q48H [facility] Last Admin: 10/30/17 21:18 Dose: 20 mg Ptom (Insulin Degludec [Tresiba Flextouch U-100] Pen 36 each SUBCUT BEDTIME [facility] Last Admin: 10/30/17 21:18 Dose: 36 each Rosuvastatin Calcium (Crestor) 20 mg PO BEDTIME [facility] Last Admin: 10/30/17 21:14 Dose: 20 mg Sitagliptin Phosphate (Januvia) 50 mg PO DAILY [facility] Last Admin: 10/31/17 08:31 Dose: 50 mg Valsartan (Diovan) 160 mg PO BEDTIME [facility] Last Admin: 10/30/17 21:15 Dose: 160 mg Discontinued Medications Sodium Chloride (Normal Saline) 500 mls @ 500 mls/hr IV ONETIME ONE Stop: 10/30/17 18:14 Last Admin: 10/30/17 23:36 Dose: Not Given Sodium Chloride (Normal Saline) 1,000 mls @ 999 mls/hr IV .BOLUS ONE Stop: 10/30/17 18:25 Last Admin: 10/30/17 17:20 Dose: 999 mls/hr Iopamidol (Isovue-370 (76%)) 75 ml IVPUSH ONETIME ONE Stop: 10/30/17 18:10 Sodium Chloride (Normal Saline) 100 ml FLUSH ASDIRECTED [facility] Stop: 10/30/17 23:00 Trimethoprim/Sulfamethoxazole (Septra Ds) 1 tab PO BID [facility] Stop: 10/31/17 08:59 - Exam General: Alert, Oriented, Other (pleaseant in no acute distress) Lungs: Clear to Auscultation, Normal Respiratory Effort Cardiovascular: Regular Rate, Regular Rhythm Extremities: Pedal Edema (trace judy) - Problem List Review Problem List Initiated/Reviewed/Updated: Yes - My Orders Last 24 Hours: My Active Orders 10/30/17 21:00 Apixaban [Eliquis] 10 mg PO BID Cephalexin [Keflex] 500 mg PO TID 11/06/17 21:00 Apixaban [Eliquis] 5 mg PO BID - Assessment Assessment:: Brief HPI. 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 She spent time in rehab at [facility] post op. She was on warfarin prophylaxis until discharge 09/17/17 at which time she was switched to ASA. Pt has recently become quite weak, dizziness with sitting up. wheezy. She was seen by ortho the day prior to admission who gave her a steroid injection and advised her to follow up with PCP. On visit to clinic, she was found to have a DDimer of 2890. She was sent to the [facility] for a CT and was admitted with PE. CT showed small PE in right upper and lower lobes without right heart strain. Pt has diabetes. She is on Tresiba 36 units, sitagliptin 50 mg, statin (Crestor ), ASA and ARB (diovan). Pt has htn. She was on diovan 240 mg bid, toprol XL 12.5 mg daily and norvasc 2.5 mg daily prior to admission. Pt has had UTI with EColi the last being 10/23/17. C&S showed sensitivity to cephalexin and septra. She has been on septra 7 days. UA again showing UTI in the clinic 1. PE: Pt was started on Eliquis 10 mg bid. continue this for 7 days then drop to 5 mg daily per pharmacy dosing. She denies any light headeness or dizziness today. She is to begin increasing her walking. 2. Diabetes: continue same. 3. Htn: She had hypotension with dizziness on day of admission. Her diovan was decreased to 160 mg daily. 4. UTI: Will stop bactrim and change to Keflex 500 mg tid x 3 days then will recheck UA 3 days later - Plan Plan:: .
[2017-10-31] MEDS: Rosuvastatin 10 MG Tab PO SCH (21:03)
[2017-10-31] MEDS: INSULIN DEGLUDEC SUBCUT SCH (21:07)
[2017-10-31] MEDS: Montelukast 10 MG Tab PO SCH (21:08)
[2017-11-01] MEDS: Iopamidol 755 Mg/ML 75 ML Bottle IVPUSH ONE (06:45)
[2017-11-01] MEDS: Metoprolol Succinate 25 MG Tab.ER PO SCH (08:00)
[2017-11-01] MEDS: Cephalexin 250 MG Cap PO SCH ×2 (08:01→14:53)
[2017-11-01] MEDS: Gabapentin 100 MG Cap PO SCH (08:01)
[2017-11-01] MEDS: amLODIPine 2.5 MG Tab PO SCH (08:01)
[2017-11-01] MEDS: Apixaban 5 MG Tab PO SCH (08:01)
[2017-11-01] MEDS: Multivitamins with Minerals/Iron/Folic Acid/Lycopene Tab PO SCH (08:01)
[2017-11-01] MEDS: Cholecalciferol (Vitamin D3) 1,000 Unit Tab PO SCH (08:01)
[2017-11-01] MEDS: Fluticasone Propionate 110 MCG/Puff 12 GM Inhaler INH SCH (09:10)
[2017-11-01] MEDS: Aspirin 81 MG Tab.Chew PO SCH (10:40)
[2017-11-01 11:46] VITALS: BP 148/67
--- NOTE | 2017-11-01 14:16 | PCM.DCSUM1 ---
Discharge Summary - Hospital Course Free Text/Narrative:: Brief HPI. 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 She spent time in rehab at [facility] post op. She was on warfarin prophylaxis until discharge 09/17/17 at which time she was switched to ASA. Pt has recently become quite weak, dizziness with sitting up. Wheezy. She was seen by ortho the day prior to admission who gave her a steroid injection and advised her to follow up with PCP. On visit to clinic, she was found to have a DDimer of 2890. She was sent to the [facility] for a CT and was admitted with PE. CT showed small PE in right upper and lower lobes without right heart strain. Bronchitis Pt has diabetes. She is on Tresiba 36 units, sitagliptin 50 mg, statin (Crestor ), ASA and ARB (diovan). Pt has htn. She was on diovan 240 mg bid, toprol XL 12.5 mg daily and norvasc 2.5 mg daily prior to admission. Her BP was down on admission to hospital and diovan was decreased to 160 mg daily. Pt has had UTI with EColi the last being 10/23/17. C&S showed sensitivity to cephalexin and septra. She had been on septra 7 days prior to admission. UA again showed UTI in the clinic. She was started on Keflex 500 mg tid x 7 days while in the hospital for persistent UTI. At time of discharge pt stated she has been feeling well. She has no further light headedness, dizziness or weakness of legs. Her BPs were stable in the hospital. She did have BP reading of 183/79 last night, but today it was acceptable at 148 /67. She is to continue divan at 160mg daily but stop in the clinic for a BP recheck this week. IF it is elevated, will need to return to 240 mg daily. - Discharge Data Discharge Date: 11/01/17 Discharge Disposition: Home, Self-Care 01 Condition: Good - Discharge Diagnosis/Problem(s) (1) Pulmonary embolism SNOMED Code(s): 27833193 ICD Code: I26.99 - OTHER PULMONARY EMBOLISM WITHOUT ACUTE COR PULMONALE Status: Acute Current Visit: Yes Qualifiers: Pulmonary embolism type: other Chronicity: acute Acute cor pulmonale presence: without acute cor pulmonale Qualified Code(s): I26.99 - Other pulmonary embolism without acute cor pulmonale - Patient Instructions Diet: Diabetic Diet Activity: As Tolerated Showering/Bathing: February Shower - Discharge Plan Prescriptions/Med Rec: Apixaban [Eliquis] 5 mg PO BID 30 Days #60 tablet Cephalexin [Keflex] 500 mg PO TID 6 Days #18 cap Home Medications: Home Meds Montelukast [Singulair] 10 mg PO BEDTIME 05/25/14 [History] Omeprazole 20 mg PO Q48H 05/25/14 [History] Fluticasone Propionate [Flovent HFA 110 MCG] 2 puff PO BID PRN 07/22/16 [History ] Gabapentin [Neurontin] 200 mg PO BID 07/22/16 [History] Rosuvastatin [Crestor] 20 mg PO BEDTIME 07/22/16 [History] SitaGLIPtin [Januvia] 50 mg PO DAILY 07/22/16 [History] amLODIPine [Norvasc] 2.5 mg PO DAILY 07/22/16 [History] Metoprolol Succinate [Toprol XL] 12.5 mg PO DAILY 09/03/17 [History] Rup Rub 1 mg TOP BID 09/03/17 [History] Multivit-Min/FA/Lycopene/Lut [Centrum Silver Tablet] 1 tab PO DAILY 09/04/17 [ History] Insulin Degludec [Tresiba Flextouch U-100] 36 units SQ BEDTIME #10 pen 09/16/17 [Rx] Valsartan 240 mg PO BEDTIME #90 tablet 09/16/17 [Rx] Aspirin 81 mg PO DAILY 10/30/17 [History] Cholecalciferol (Vitamin D3) [Vitamin D3] 2,000 unit PO DAILY 10/30/17 [History] Apixaban [Eliquis] 5 mg PO BID 30 Days #60 tablet 11/01/17 [Rx] Cephalexin [Keflex] 500 mg PO TID 6 Days #18 cap 11/01/17 [Rx] - Discharge Summary/Plan Comment Discharge Summary/Plan Comment: 1. PE: Pt was started on Eliquis 10 mg bid. continue this for 7 days then drop to 5 mg daily per pharmacy dosing. She denies any further light headedness , dizziness or weak legs. 2. Diabetes: continue same. 3. Htn: She had hypotension with dizziness on day of admission. Her diovan was decreased to 160 mg daily. She did have BP reading of 183/79 last night, but today it was acceptable at 148/67. She is to continue divan at 160mg daily but stop in the clinic for a BP recheck this week. If it is elevated, will need to return to 240 mg daily. 4. UTI: Bactrim was stopped and changed to Keflex 500 mg tid x 7 days. Extended course due to recurrent failed treatment with Bactrim. Portia recheck UA on follow up visit at clinic next week. - General Info Date of Service: 11/01/17 Admission Dx/Problem (Free Text: PE Dehydration UTI Functional Status: Reports: Tolerating Diet, Ambulating - Review of Systems General: Reports: No Symptoms HEENT: Reports: No Symptoms Pulmonary: Reports: No Symptoms, Other (reports chronic shortness of breath and coughing. Feels at her baseline). Denies: Wheezing Cardiovascular: Reports: No Symptoms. Denies: Chest Pain Gastrointestinal: Reports: No Symptoms, Other (soft stools) Genitourinary: Reports: No Symptoms. Denies: Dysuria Skin: Reports: No Symptoms Neurological: Reports: No Symptoms. Denies: Confusion, Dizziness, Headache Psychiatric: Reports: No Symptoms - Patient Data Vitals - Most Recent: Last Vital Signs Temp 98.0 F 11/01/17 11:00 Pulse 57 L 11/01/17 11:00 Resp 16 11/01/17 11:00 BP 148/67 H 11/01/17 11:00 Pulse Ox 95 11/01/17 11:00 Orthostatic Blood Pressure [ 134/65 Standing] Orthostatic Blood Pressure [ 165/73 Sitting] Orthostatic Blood Pressure [ 134/61 Supine] Weight - Most Recent: 179 lb 3.2 oz I&O - Last 24 hours: Intake & Output 10/31/17 11/01/17 11/01/17 22:59 06:59 14:59 Intake Total 1039 800 Output Total 1200 2300 Balance -161 -1500 Lab Results - Last 24 hrs: Laboratory Results - last 24 hr 10/31/17 11/01/17 11/01/17 Range/Units 17:21 06:42 09:30 Sodium 133 L (136-145) mmol/L Potassium 5.4 H (3.3-5.3) mmol/L Chloride 101 (98-115) mmol/L Carbon Dioxide 24.9 (21.0-32.0) mmol/L BUN 20 (6-25) mg/dL Creatinine 1.00 (0.51-1.17) mg/dL Est Cr Clr Drug Dosing 30.08 mL/min Estimated GFR (MDRD) 53 mL/min Glucose 233 H (70-110) mg/dL POC Glucose 188 H 157 H (74-106) mg/dl Calcium 8.7 (8.7-10.3) mg/dL Med Orders - Current: Current Medications Amlodipine Besylate (Norvasc) 2.5 mg PO DAILY [facility] Last Admin: 11/01/17 08:01 Dose: 2.5 mg Apixaban (Eliquis) 10 mg PO BID [facility] Stop: 11/06/17 09:01 Last Admin: 11/01/17 08:01 Dose: 10 mg Apixaban (Eliquis) 5 mg PO BID [facility] Aspirin (Aspirin) 81 mg PO DAILY [facility] Last Admin: 11/01/17 10:40 Dose: 81 mg Cephalexin (Keflex) 500 mg PO TID [facility] Stop: 11/02/17 14:01 Last Admin: 11/01/17 08:01 Dose: 500 mg Cholecalciferol (Vitamin D3) 2,000 units PO DAILY [facility] Last Admin: 11/01/17 08:01 Dose: 2,000 units Fluticasone Propionate (Flovent Hfa 110 Mcg) 0 gm INH BID [facility] Last Admin: 11/01/17 09:10 Dose: Not Given Gabapentin (Neurontin) 200 mg PO BID [facility] Last Admin: 11/01/17 08:01 Dose: 200 mg Sodium Chloride (Normal Saline) 1,000 mls @ 75 mls/hr IV ASDIRECTED [facility] Last Admin: 10/31/17 19:57 Dose: 75 mls/hr Metoprolol Succinate (Toprol Xl) 12.5 mg PO DAILY [facility] Last Admin: 11/01/17 08:00 Dose: 12.5 mg Montelukast Sodium (Singulair) 10 mg PO BEDTIME [facility] Last Admin: 10/31/17 21:08 Dose: 10 mg Multivitamins/Minerals (Centrum) 1 tab PO DAILY [facility] Last Admin: 11/01/17 08:01 Dose: 1 tab Omeprazole (Omeprazole) 20 mg PO Q48H [facility] Last Admin: 10/30/17 21:18 Dose: 20 mg Ptom (Insulin Degludec [Tresiba Flextouch U-100] Pen 36 each SUBCUT BEDTIME [facility] Last Admin: 10/31/17 21:07 Dose: 36 each Rosuvastatin Calcium (Crestor) 20 mg PO BEDTIME [facility] Last Admin: 10/31/17 21:03 Dose: 20 mg Sitagliptin Phosphate (Januvia) 50 mg PO DAILY [facility] Last Admin: 11/01/17 08:01 Dose: 50 mg Valsartan (Diovan) 160 mg PO BEDTIME [facility] Last Admin: 10/31/17 21:06 Dose: 160 mg Discontinued Medications Heparin Sodium (Porcine) (Heparin Lock Flush 100 Units/Ml) 500 units FLUSH ONETIME ONE Stop: 11/01/17 11:46 Last Admin: 11/01/17 12:09 Dose: 500 units Sodium Chloride (Normal Saline) 500 mls @ 500 mls/hr IV ONETIME ONE Stop: 10/30/17 18:14 Last Admin: 10/30/17 23:36 Dose: Not Given Sodium Chloride (Normal Saline) 1,000 mls @ 999 mls/hr IV .BOLUS ONE Stop: 10/30/17 18:25 Last Admin: 10/30/17 17:20 Dose: 999 mls/hr Iopamidol (Isovue-370 (76%)) 75 ml IVPUSH ONETIME ONE Stop: 10/30/17 18:10 Last Admin: 11/01/17 06:45 Dose: Not Given Sodium Chloride (Normal Saline) 100 ml FLUSH ASDIRECTED [facility] Stop: 10/30/17 23:00 Trimethoprim/Sulfamethoxazole (Septra Ds) 1 tab PO BID [facility] Stop: 10/31/17 08:59 - Exam Quality Assessment: Denies: Supplemental Oxygen General: Reports: Alert, Oriented Lungs: Reports: Clear to Auscultation. Denies: Crackles, Rales, Wheezing Cardiovascular: Reports: Regular Rate, Regular Rhythm GI/Abdominal Exam: Soft, Non-Tender Extremities: No Pedal Edema Neurological: Reports: No New Focal Deficit Psy/Mental Status: Reports: Alert, Normal Affect, Normal Mood *Q Meaningful Use (DIS) - VTE *Q VTE Criteria *Q: - Stroke *Q Stroke Criteria *Q: - AMI *Q AMI Criteria *Q:
[2017-11-06] MEDS ORDERED: Apixaban 5 MG Tab PO SCH (21:00)
== END 2017-11-01 15:00 | disposition home or self-care (01) | DRG 176 ==
LOC: KA.MS 16:39
PROVIDERS: ADMIT Nurse Practitioner Family; ATTEND Nurse Practitioner Family
DX: I26.99 Other pulmonary embolism without acute cor pulmonale (principal); N39.0 Urinary tract infection, site not specified; B96.20 Unspecified Escherichia coli [E. coli] as the cause of diseases classified elsewhere; E86.0 Dehydration; E11.9 Type 2 diabetes mellitus without complications; I10 Essential (primary) hypertension; Z79.4 Long term (current) use of insulin; Z79.899 Other long term (current) drug therapy
CPT/HCPCS: 71260; 80048; 82962; 85025; A9270-GY; J1642; J7030; Q9967

== ENCOUNTER 2019-07-28 10:24 | Observation (INO) | payer MEDICARE, BC, MEDICAID ==
[2019-07-28] MEDS ORDERED: Morphine 2 MG/ML Syringe IVPUSH PRN (11:19)
[2019-07-28] MEDS: Sodium Chloride 0.9% 20 ML SDV FLUSH PRN ×2 (11:45→15:30)
[2019-07-28] MEDS ORDERED: Ondansetron 4 MG/2 ML SDV IVPUSH PRN (12:02)
[2019-07-28] MEDS ORDERED: [UNRECOGNIZED DRUG - OTHER] TOP PRN (13:36)
[2019-07-28] MEDS ORDERED: HEPARIN SODIUM IV SCH (13:45)
[2019-07-28] MEDS ORDERED: [UNRECOGNIZED DRUG - OTHER] IV SCH (13:45)
[2019-07-28] MEDS: Losartan 50 MG Tab PO SCH (14:21)
[2019-07-28] MEDS: Famotidine 20 MG Tab PO SCH (14:21)
[2019-07-28] MEDS: Cholecalciferol (Vitamin D3) 25 MCG Tab PO SCH (14:21)
[2019-07-28] MEDS: Montelukast 10 MG Tab PO SCH (14:21)
[2019-07-28] MEDS: traMADol 50 MG Tab PO PRN ×2 (14:22→22:04)
--- NOTE | 2019-07-28 17:05 | CR ---
[id number] RAD/RAD Chest PA And Lateral EXAM: RAD Chest PA And Lateral INDICATION: ASTHMA. COMPARISON: July 2014 DISCUSSION: Left chest wall port catheter in place. Cardiomediastinal silhouette is unchanged in size and contour compared to the prior examination. No infiltrate, effusion, pneumothorax, or edema. IMPRESSION: Negative examination of the chest. Vniod Griffin MD 07/28/19 [id number] Thank you for allowing us to participate in the care of your patient.
--- NOTE | 2019-07-28 17:09 | MR ---
[id number] MR/MRI Hip Left WO IV EXAM: MRI Hip Left WO IV INDICATION: PAIN. COMPARISON: None. DISCUSSION: Articular cartilage and joint space: Moderate right femoroacetabular osteoarthritis with cartilage thinning and fissuring, including a small area of subchondral marrow change in the peripheral rim of the superior acetabulum. Degenerative tearing of the labrum. Small joint effusion. Tendons: Iliopsoas, gluteal, hamstring, and adductor tendons are unremarkable. Bones: No acute fracture or bone contusion. No marrow replacing process. IMPRESSION: Moderate left femoroacetabular osteoarthritis with associated findings, described above. Vinod Griffin MD 07/28/19 [id number] Thank you for allowing us to participate in the care of your patient.
--- NOTE | 2019-07-28 17:14 | MR ---
[id number] MR/MRI Lumbar Spine WO IV EXAM: MRI Lumbar Spine WO IV INDICATION: PAIN. COMPARISON: 2015. DISCUSSION: No fracture, compression deformity, or marrow replacing process. Multiple vertebral body hemangiomas, similar to the prior examination. Distal spinal cord is normal in caliber and signal. Cauda equina nerve roots are unremarkable. Spondylosis diffusely throughout the lumbar spine. Findings including advanced L4-5 facet joint arthropathy resulting in grade 1 anterolisthesis, similar to the prior examination. In combination with degenerative disc disease, findings result in severe central canal stenosis, also similar to the prior examination. Moderate to severe central canal stenosis at L3-4, similar to 2015 as well. Mild to moderate changes of foraminal stenosis diffusely throughout the lumbar lower thoracic spine most prominent at L5-S1, similar to the prior examination. Paraspinal soft tissues are unremarkable. No abnormality in the visualized retroperitoneal structures. IMPRESSION: No acute findings in the lumbar spine. Spondylosis with foraminal central canal stenosis described in detail above. No significant change in appearance compared to 2015. Vinod Griffin MD 07/28/19 [id number] Thank you for allowing us to participate in the care of your patient.
[2019-07-28] MEDS ORDERED: Fluticasone Propionate 110 MCG/Puff 12 GM Inhaler INH SCH (21:00)
[2019-07-28] MEDS ORDERED: TRESIBA 100 UNIT/ML SQ SCH (21:00)
[2019-07-28] MEDS ORDERED: Aspirin 81 MG Tab.Chew PO SCH (21:00)
[2019-07-28] MEDS ORDERED: Rosuvastatin 10 MG Tab PO SCH (21:00)
[2019-07-28] MEDS: Gabapentin 100 MG Cap PO SCH (21:52)
[2019-07-28] MEDS: Acetaminophen 650 MG Tab.ER PO SCH (21:52)
[2019-07-29] MEDS ORDERED: Multivitamins with Minerals/Iron/Folic Acid/Lycopene Tab PO SCH (09:00)
[2019-07-29] MEDS: Gabapentin 100 MG Cap PO SCH (09:28)
[2019-07-29] MEDS: Famotidine 20 MG Tab PO SCH (09:29)
[2019-07-29] MEDS: Montelukast 10 MG Tab PO SCH (09:29)
[2019-07-29] MEDS: Cholecalciferol (Vitamin D3) 25 MCG Tab PO SCH (09:29)
[2019-07-29] MEDS: Acetaminophen 650 MG Tab.ER PO SCH (09:29)
[2019-07-29] MEDS: traMADol 50 MG Tab PO PRN (09:30)
[2019-07-29] MEDS: Losartan 50 MG Tab PO SCH (09:30)
[2019-07-29] MEDS: Sodium Chloride 0.9% 20 ML SDV FLUSH PRN (09:53)
[2019-07-29 12:53] VITALS: BP 145/76; PULSE 74
[2019-07-29] MEDS ORDERED: TRESIBA 100 UNIT/ML SQ SCH (21:00)
== END 2019-07-29 12:35 | disposition home or self-care (01) ==
LOC: KA.MS 10:24 → UNDOADMOB 10:24 → KA.MS 11:13
PROVIDERS: ADMIT Family Medicine; ATTEND Family Medicine
DX: M25.552 Pain in left hip (principal); M15.9 Polyosteoarthritis, unspecified; E78.00 Pure hypercholesterolemia, unspecified; E11.40 Type 2 diabetes mellitus with diabetic neuropathy, unspecified; E66.9 Obesity, unspecified; I12.9 Hypertensive chronic kidney disease with stage 1 through stage 4 chronic kidney disease, or unspecified chronic kidney disease; E11.22 Type 2 diabetes mellitus with diabetic chronic kidney disease; N18.2 Chronic kidney disease, stage 2 (mild); K21.9 Gastro-esophageal reflux disease without esophagitis; Z79.4 Long term (current) use of insulin; Z79.899 Other long term (current) drug therapy; Z88.0 Allergy status to penicillin; Z91.013 Allergy to seafood; Z88.6 Allergy status to analgesic agent; Z88.1 Allergy status to other antibiotic agents; Z88.8 Allergy status to other drugs, medicaments and biological substances; Z68.35 Body mass index [BMI] 35.0-35.9, adult
CPT/HCPCS: 36415; 71046; 72148; 73721; 80053; 81001; 82962; 84145; 85025; A9270; J1642; J2270; 96374; G0378; G0379

== ENCOUNTER 2019-09-13 14:52 | Emergency (ER) | payer MEDICARE, BC, MEDICAID ==
--- NOTE | 2019-09-13 15:34 | EDM.PDOC ---
ED HPI GENERAL MEDICAL PROBLEM - General Chief Complaint: General Stated Complaint: weakness Time Seen by Provider: 09/13/19 15:24 Source of Information: Reports: Patient, EMS History Limitations: Reports: No Limitations - History of Present Illness INITIAL COMMENTS - FREE TEXT/NARRATIVE: Michell was in her garage sweeping out leaves, at which she felt slightly fatigued and was going to rest. She went to her car opened the door and was going to get in and sit down to rest but due to her chronic right sided leg as well as right arm weakness she had difficulty getting in. She lowered herself onto the floor without injury. She again attempted to pull herself up but secondary of the weakness to the right arm secondary of the shoulder replacement and muscle loss she was unable to accomplish that feat. She then contacted her [id number] who summoned EMS who transported her here. Labile blood pressure readings were noted with significant fluctuation, and mild hypertensive readings here in the emergency department upon arrival. She denied any shortness of breath chest pain or dysfunction other than chronic weakness to the right extremities and muscle pain from what she states was repetitious pulling with the right arm. Onset: Today Onset Date: 09/13/19 Onset Time: 14:00 Duration: Hour(s): Location: Reports: Upper Extremity, Right, Lower Extremity, Right Quality: Reports: Dull Severity: Mild Improves with: Reports: Rest Worsens with: Reports: Movement Associated Symptoms: Reports: No Other Symptoms - Related Data Allergies Allergy/AdvReac Type Severity Reaction Status Date / Time metformin HCl Allergy Unknown Cannot Verified 09/13/19 15:08 [From Glucophage] Remember ampicillin Allergy Hives Verified 09/13/19 15:08 cefadroxil Allergy Blurred Verified 09/13/19 15:08 Vision naproxen sodium [From Aleve] Allergy Itching Verified 09/13/19 15:08 rivaroxaban [From Xarelto] Allergy Blurred Verified 09/13/19 15:08 Vision shellfish derived Allergy Hives Verified 09/13/19 15:08 decongestants Allergy Syncope Uncoded 09/13/19 15:08 Home Meds: Home Meds Montelukast [Singulair] 10 mg PO DAILY 05/25/14 [History] Gabapentin [Neurontin] 200 mg PO BID 07/22/16 [History] Rosuvastatin [Crestor] 20 mg PO BEDTIME 07/22/16 [History] SitaGLIPtin [Januvia] 100 mg PO DAILY 07/22/16 [History] Rup Rub 1 mg TOP BID PRN 09/03/17 [History] Aspirin 81 mg PO DAILY 10/30/17 [History] Cholecalciferol (Vitamin D3) [Vitamin D3] 2,000 unit PO DAILY 10/30/17 [History] Acetaminophen [Tylenol Arthritis Pain] 650 mg PO BID 07/28/19 [History] Famotidine 20 mg PO DAILY 07/28/19 [History] Fluticasone Propionate [Flovent HFA 110 MCG] 2 puff INH BID 07/28/19 [History] Heparin Sodium,Porcine/PF [Heparin IV Flush 100 Units/ml] 500 unit IV Q28D 07/28 [History] Insulin Degludec [Tresiba Flextouch U-100] 28 units SQ BEDTIME 07/28/19 [History ] Losartan [Cozaar] 50 mg PO DAILY 07/28/19 [History] Lutein 10 mg PO DAILY 07/28/19 [History] Multivitamin with Minerals [Multiple Vitamin] 1 tab PO DAILY 07/28/19 [History] traMADol [Ultram] 50 mg PO TID PRN 07/28/19 [History] Sennosides/Docusate Sodium [Senna-S] 1 each PO DAILY 09/13/19 [History] Past Medical History HEENT History: Reports: Cataract, Impaired Vision, Macular Degeneration Cardiovascular History: Reports: Blood Clots/VTE/DVT, CAD, High Cholesterol, Hypertension Respiratory History: Reports: Pneumothorax, SOB Gastrointestinal History: Reports: GERD Genitourinary History: Reports: Renal Disease [employer] History: Reports: , Prolapsed Uterus Musculoskeletal History: Reports: Arthritis, Osteoarthritis, Osteoporosis Neurological History: Reports: Migraines, Neuropathy, Peripheral Psychiatric History: Reports: None Endocrine/Metabolic History: Reports: Diabetes, Type II, Obesity/BMI 30+, Osteoporosis, Vitamin D Deficiency Hematologic History: Reports: Anesthesia Reaction Other Hematologic History: Pt reports excessive nausea/vomiting with anesthesia Immunologic History: Reports: None Oncologic (Cancer) History: Reports: Lung, Other (See Below) Other Oncologic History: Left lung cancer, lower lobectomy Dermatologic History: Reports: None - Infectious Disease History Infectious Disease History: Reports: Chicken Pox, Mumps, Shingles - Past Surgical History Head Surgeries/Procedures: Reports: None HEENT Surgical History: Reports: Cataract Surgery Cardiovascular Surgical History: Reports: None Respiratory Surgical History: Reports: Lung Resection, Thoracotomy GI Surgical History: Reports: Appendectomy, Cholecystectomy, Colonoscopy Female Surgical History: Reports: Hysterectomy, Oophorectomy, Other (See Below) Endocrine Surgical History: Reports: None Neurological Surgical History: Reports: None Musculoskeletal Surgical History: Reports: Hip Replacement, Knee Replacement, Shoulder Replacement, Shoulder Surgery Other Musculoskeletal Surgeries/Procedures:: s/p LTKA here for swingbed Oncologic Surgical History: Reports: None Dermatological Surgical History: Reports: None Social & Family History - Family History Family Medical History: Noncontributory HEENT: Reports: Impaired Vision - Tobacco Use Smoking Status *Q: Former Smoker Used Tobacco, but Quit: Yes Month/Year Tobacco Last Used: quit 55 yrs ago - Caffeine Use Caffeine Use: Reports: Coffee - Recreational Drug Use Recreational Drug Use: No ED ROS GENERAL - Review of Systems Review Of Systems: See Below Constitutional: Reports: No Symptoms HEENT: Reports: No Symptoms Respiratory: Reports: No Symptoms Cardiovascular: Reports: No Symptoms Endocrine: Reports: No Symptoms GI/Abdominal: Reports: No Symptoms : Reports: No Symptoms Musculoskeletal: Reports: Joint Pain, Muscle Stiffness Skin: Reports: No Symptoms Neurological: Reports: No Symptoms Psychiatric: Reports: No Symptoms Hematologic/Lymphatic: Reports: No Symptoms Immunologic: Reports: No Symptoms ED EXAM, GENERAL - Physical Exam Exam: See Below Exam Limited By: No Limitations General Appearance: Alert, WD/WN, No Apparent Distress Ears: Normal External Exam, Normal Canal, Hearing Grossly Normal, Normal TMs Nose: Normal Inspection, Normal Mucosa, No Blood Throat/Mouth: Normal Inspection, Normal Lips, Normal Teeth, Normal Gums, Normal Oropharynx, Normal Voice, No Airway Compromise Head: Atraumatic, Normocephalic Neck: Normal Inspection, Supple, Non-Tender, Full Range of Motion Respiratory/Chest: No Respiratory Distress, Lungs Clear, No Accessory Muscle Use , Chest Non-Tender. No: Normal Breath Sounds (Diminished on the left secondary of lobectomy but clear) Cardiovascular: Normal Peripheral Pulses, Regular Rate, Rhythm, No Edema, No Gallop, No JVD, No Murmur, No Rub GI/Abdominal: Normal Bowel Sounds, Soft, Non-Tender, No Organomegaly (Female) Exam: Deferred Rectal (Female) Exam: Deferred Back Exam: Full Range of Motion Extremities: No Pedal Edema, Arm Pain, Other (There is mild discomfort to the musculature of the right shoulder with significant anterior remodeling/scarring from her previous surgeries, repairs, and revision.) Neurological: Alert, Oriented, CN II-XII Intact, Normal Cognition, Normal Gait, Normal Reflexes, No Motor/Sensory Deficits Psychiatric: Normal Affect, Normal Mood Skin Exam: Warm, Dry, Intact, Normal Color, No Rash Lymphatic: No Adenopathy Course - Vital Signs Last Recorded V/S: Last Vital Signs Temp 36.2 C 09/13/19 15:04 Pulse 89 09/13/19 16:39 Resp 19 09/13/19 16:39 BP 172/76 H 09/13/19 16:39 Pulse Ox 95 09/13/19 16:39 - Orders/Labs/Meds Orders: Active Orders 24 hr Category Date Time Status Blood Glucose Check, Bedside [RC] ONETIME Care 09/13/19 15:32 Active Labs: Laboratory Tests 09/13/19 09/13/19 09/13/19 Range/Units 15:25 15:25 15:28 WBC 9.24 (5.00-10.00) 10^3/uL RBC 4.32 (3.80-5.50) 10^6/uL Hgb 13.1 (12.0-16.0) g/dL Hct 38.8 (37.0-47.0) % MCV 89.8 (82.0-92.0) fL MCH 30.3 (27.0-31.0) pg MCHC 33.8 (32.0-36.0) g/dL RDW 14.2 (11.5-14.5) % Plt Count 270 (150-400) 10^3/uL MPV 8.8 (7.4-10.4) fL Immature Gran % (Auto) 0.1 (0.0-5.0) % Neut % (Auto) 73.6 H (50.0-70.0) % Lymph % (Auto) 18.4 L (20.0-40.0) % Garrett % (Auto) 6.4 (2.0-8.0) % Eos % (Auto) 1.3 (1.0-3.0) % Baso % (Auto) 0.2 (0.0-1.0) % Immature Gran # (Auto) 0.01 (0.00-0.50) 10^3/uL Neut # (Auto) 6.80 (2.50-7.00) 10^3/uL Lymph # (Auto) 1.70 (1.00-4.00) 10^3/uL Garrett # (Auto) 0.59 (0.10-0.80) 10^3/uL Eos # (Auto) 0.12 (0.10-0.30) 10^3/uL Baso # (Auto) 0.02 (0.00-0.10) 10^3/uL Sodium 135 L (136-145) mmol/L Potassium 4.5 (3.3-5.3) mmol/L Chloride 99 (98-115) mmol/L Carbon Dioxide 27.6 (21.0-32.0) mmol/L Anion Gap 12.9 (5-15) mmol/L BUN 15 (6-25) mg/dL Creatinine 0.81 (0.51-1.17) mg/dL Est Cr Clr Drug Dosing 35.81 mL/min Estimated GFR (MDRD) > 60 mL/min Glucose 147 H (75 - 99) mg/dL POC Glucose 147 H (74-106) mg/dl Calcium 9.4 (8.7-10.3) mg/dL Total Bilirubin 0.5 (0.2-1.0) mg/dL AST 21 (15-37) U/L ALT 20 (12-78) U/L Alkaline Phosphatase 49 (46-116) IU/L Total Protein 6.5 (6.4-8.2) g/dL Albumin 3.22 (3.00-4.80) g/dL - Re-Assessments/Exams Free Text/Narrative Re-Assessment/Exam: 09/13/19 18:11 Initially felt slightly weak when getting up. She consumed 8 ounces of water with no difficulty. She then needed to use the bathroom and had no difficulty stating she felt fine. Upon return to the room stated she was feeling fine and was ready to be discharged home. Current instructions and waiting for family members to transport. Departure - Departure Time of Disposition: 18:09 Disposition: Home, Self-Care 01 Condition: Good Clinical Impression: Arm pain, right, Right-sided muscle weakness - Discharge Information *PRESCRIPTION DRUG MONITORING PROGRAM REVIEWED*: Not Applicable *COPY OF PRESCRIPTION DRUG MONITORING REPORT IN PATIENT [place]: Not Applicable Referrals: Janna Berumen VP OF MARKETING [Primary Care Provider] - Forms: ED Department Discharge Additional Instructions: Go home and rest this evening. Continue your medications as previously directed. You may try heat to your shoulder and arm area where the muscles are sore. Make sure you maintain good fluid intake and eat healthy. Call or return if symptoms should recur this evening or contact your clinic in the morning for recheck in the next week. - Problem List & Annotations (1) Arm pain, right SNOMED Code(s): 493752384 Code(s): M79.601 - PAIN IN RIGHT ARM Status: Acute Priority: Medium Current Visit: Yes (2) Right-sided muscle weakness SNOMED Code(s): 10894535, 627503119 Code(s): M62.81 - MUSCLE WEAKNESS (GENERALIZED) Status: Acute Priority: Medium Current Visit: Yes (3) Diabetes mellitus SNOMED Code(s): 87129186 Code(s): E11.9 - TYPE 2 DIABETES MELLITUS WITHOUT COMPLICATIONS Status: Chronic Priority: Medium Current Visit: No - Problem List Review Problem List Initiated/Reviewed/Updated: Yes - My Orders Last 24 Hours: My Active Orders 09/13/19 15:32 Blood Glucose Check, Bedside [RC] ONETIME - Assessment/Plan Last 24 Hours: My Active Orders 09/13/19 15:32 Blood Glucose Check, Bedside [RC] ONETIME Plan: Go home and rest this evening. Continue your medications as previously directed. You may try heat to your shoulder and arm area where the muscles are sore. Make sure you maintain good fluid intake and eat healthy. Call or return if symptoms should recur this evening or contact your clinic in the morning for recheck in the next week.
[2019-09-13 15:54] LABS: ANION GAP 12.9 mmol/L (5-15); CHLORIDE,CL 99 mmol/L (98-115); SODIUM,NA 135 mmol/L (136-145)
[2019-09-13 17:36] VITALS: BP 147/57; PULSE 71
== END 2019-09-13 18:25 | disposition home or self-care (01) ==
LOC: KA.ED 14:52
DX: M79.601 Pain in right arm (principal); R53.1 Weakness; I25.10 Atherosclerotic heart disease of native coronary artery without angina pectoris; I10 Essential (primary) hypertension; E78.5 Hyperlipidemia, unspecified; K21.9 Gastro-esophageal reflux disease without esophagitis; Z86.718 Personal history of other venous thrombosis and embolism; E11.42 Type 2 diabetes mellitus with diabetic polyneuropathy; E66.9 Obesity, unspecified; Z68.35 Body mass index [BMI] 35.0-35.9, adult; Z88.8 Allergy status to other drugs, medicaments and biological substances; Z88.0 Allergy status to penicillin; Z88.6 Allergy status to analgesic agent; Z91.013 Allergy to seafood; Z87.891 Personal history of nicotine dependence; Z79.4 Long term (current) use of insulin; Z79.82 Long term (current) use of aspirin; Z79.899 Other long term (current) drug therapy
CPT/HCPCS: 36415; 80053; 82962; 85025; 99284; 99285

== ENCOUNTER 2020-06-02 04:14 | Emergency (ER) | payer MEDICARE, BC, MEDICAID ==
--- NOTE | 2020-06-02 04:38 | EDM.PDOC ---
ED HPI GENERAL MEDICAL PROBLEM - General Chief Complaint: General Stated Complaint: blurred vision Time Seen by Provider: 06/02/20 04:38 Source of Information: Reports: Patient - History of Present Illness INITIAL COMMENTS - FREE TEXT/NARRATIVE: Was awake this morning until roughly 2 AM playing computer games. Having difficulty getting to sleep, repositioned several times, turning onto her left side. She laid on her left side across her arm for some time then when turning to her right experienced dizziness. When sitting up dizziness became severe inducing nausea and emesis, roughly 3 AM. Originally called to the hospital advising of symptoms questioning if having a stroke. Presented close to an hour later as symptoms were aggravated with positioning. Denies any fever chills or COVID 19 risks or exposures. Onset: Today Duration: Hour(s): Location: Reports: Head Quality: Reports: Pressure Severity: Moderate Improves with: Reports: None Worsens with: Reports: Movement Associated Symptoms: Reports: Nausea/Vomiting - Related Data Allergies Allergy/AdvReac Type Severity Reaction Status Date / Time metformin HCl Allergy Unknown Cannot Verified 06/02/20 04:49 [From Glucophage] Remember ampicillin Allergy Hives Verified 06/02/20 04:49 cefadroxil Allergy Blurred Verified 06/02/20 04:49 Vision naproxen sodium [From Aleve] Allergy Itching Verified 06/02/20 04:49 rivaroxaban [From Xarelto] Allergy Blurred Verified 06/02/20 04:49 Vision shellfish derived Allergy Hives Verified 06/02/20 04:49 decongestants Allergy Syncope Uncoded 06/02/20 04:49 Home Meds: Home Meds Montelukast [Singulair] 10 mg PO DAILY 05/25/14 [History] Gabapentin [Neurontin] 200 mg PO BID 07/22/16 [History] Rosuvastatin [Crestor] 20 mg PO DAILY 07/22/16 [History] SitaGLIPtin [Januvia] 100 mg PO DAILY 07/22/16 [History] Rup Rub 1 mg TOP BID PRN 09/03/17 [History] Aspirin 81 mg PO DAILY 10/30/17 [History] Cholecalciferol (Vitamin D3) [Vitamin D3] 2,000 unit PO DAILY 10/30/17 [History] Acetaminophen [Tylenol Arthritis Pain] 650 mg PO BID 07/28/19 [History] Famotidine 20 mg PO DAILY 07/28/19 [History] Fluticasone Propionate [Flovent HFA 110 MCG] 2 puff INH BID PRN 07/28/19 [History] Heparin Sodium,Porcine/PF [Heparin IV Flush 100 Units/ml] 500 unit IV Q28D 07/28/19 [History] Insulin Degludec [Tresiba Flextouch U-100] 20 - 22 units SQ BEDTIME 07/28/19 [History] Losartan [Cozaar] 50 mg PO DAILY 07/28/19 [History] Lutein 10 mg PO DAILY 07/28/19 [History] Multivitamin with Minerals [Multiple Vitamin] 1 tab PO DAILY 07/28/19 [History] Alendronate Sodium [Fosamax] 70 mg PO ASDIRECTED 06/02/20 [History] Calcium Carbonate [Calcium] 1,200 mg PO DAILY 06/02/20 [History] Meclizine [Antivert] 25 mg PO Q6H PRN 10 Days #30 tab 06/02/20 [Rx] Past Medical History HEENT History: Reports: Cataract, Impaired Vision, Macular Degeneration Cardiovascular History: Reports: Blood Clots/VTE/DVT, CAD, High Cholesterol, Hypertension Respiratory History: Reports: Pneumothorax, SOB Gastrointestinal History: Reports: GERD Genitourinary History: Reports: Renal Disease [employer] History: Reports: , Prolapsed Uterus Musculoskeletal History: Reports: Arthritis, Osteoarthritis, Osteoporosis Neurological History: Reports: Migraines, Neuropathy, Peripheral Psychiatric History: Reports: None Endocrine/Metabolic History: Reports: Diabetes, Type II, Obesity/BMI 30+, Osteoporosis, Vitamin D Deficiency Hematologic History: Reports: Anesthesia Reaction Other Hematologic History: Pt reports excessive nausea/vomiting with anesthesia Immunologic History: Reports: None Oncologic (Cancer) History: Reports: Lung, Other (See Below) Other Oncologic History: Left lung cancer, lower lobectomy Dermatologic History: Reports: None - Infectious Disease History Infectious Disease History: Reports: Chicken Pox, Mumps, Shingles - Past Surgical History Head Surgeries/Procedures: Reports: None HEENT Surgical History: Reports: Cataract Surgery Cardiovascular Surgical History: Reports: None Respiratory Surgical History: Reports: Lung Resection, Thoracotomy GI Surgical History: Reports: Appendectomy, Cholecystectomy, Colonoscopy Female Surgical History: Reports: Hysterectomy, Oophorectomy, Other (See Below) Endocrine Surgical History: Reports: None Neurological Surgical History: Reports: None Musculoskeletal Surgical History: Reports: Hip Replacement, Knee Replacement, Shoulder Replacement, Shoulder Surgery Other Musculoskeletal Surgeries/Procedures:: s/p LTKA here for swingbed Oncologic Surgical History: Reports: None Dermatological Surgical History: Reports: None Social & Family History - Family History Family Medical History: Noncontributory HEENT: Reports: Impaired Vision - Caffeine Use Caffeine Use: Reports: Coffee ED ROS GENERAL - Review of Systems Review Of Systems: See Below Constitutional: Reports: No Symptoms HEENT: Reports: No Symptoms Respiratory: Reports: No Symptoms Cardiovascular: Reports: Blood Pressure Problem Endocrine: Reports: No Symptoms GI/Abdominal: Reports: Nausea : Reports: No Symptoms Musculoskeletal: Reports: No Symptoms Skin: Reports: No Symptoms Neurological: Reports: Dizziness Psychiatric: Reports: No Symptoms Hematologic/Lymphatic: Reports: No Symptoms Immunologic: Reports: No Symptoms ED EXAM, GENERAL - Physical Exam Exam: See Below Free Text/Narrative:: Alert, cheerful, oriented today and place. She is able to speak in complete sentences and shows no deficits. HEENT is negative to discharge nor deformity. PERRLA, no icterus no injection, EOM is intact. Glasses are present. Mild cerumen in the canals but nonobstructive bilaterally. Nasal passages are patent. Oropharynx is pink and moist with no exudate or erythema. Facial symmetry is noted with no droop, no deficit to speech, able to smile, frown, point her tongue, close and open her eyes forcefully. Neck is soft supple no lymphadenopathy no rigidity. I do not appreciate carotid bruit. Thorax is clear throughout with no wheezes nor crackles. Cardiac is S1-S2 I do not appreciate murmur. Abdomen is soft bowel sounds are present, no tenderness is noted. States she just had a "good healthy bowel movement". Trace edema to the lower extremities skin is warm and dry pulses present ,rectal, & breast are deferred. Nilan Barany testing to the right shows 2 beats of nystagmus very minimal, then resolving. When raising to seated position experiences mild nausea. Allowed to sit for a minute with resolution. With head turned to the left and placed into supine positioning upon opening her eyes, significant horizontal nystagmus is seen in both eyes. Nausea recurs, elevating head of bed to 30 degrees resolves. States positioning induced some nausea, some dizziness, both worse to the left side. Facial symmetry is maintained as well as speech and mentation. EKG INTERPRETATION EKG Date: 06/02/20 Time: 04:37 Rhythm: NSR Rudolph: Normal P-Wave: Present QRS: Normal ST-T: Normal QT: Normal Comparison: NA - No Prior EKG Course - Vital Signs Last Recorded V/S: Last Vital Signs Temp 36.1 C 06/02/20 04:40 Pulse 69 06/02/20 06:26 Resp 20 06/02/20 05:49 BP 174/71 H 06/02/20 06:26 Pulse Ox 96 06/02/20 05:49 - Orders/Labs/Meds Orders: Active Orders 24 hr Category Date Time Status EKG Documentation Completion [RC] ASDIRECTED Care 06/02/20 04:49 Active Peripheral IV Care [RC] . DIRECTED Care 06/02/20 04:48 Active Sodium Chloride 0.9% [Saline Flush] Med 06/02/20 04:48 Active 10 ml FLUSH Q8HR PRN Peripheral IV Insertion Adult [OM.PC] Routine Oth 06/02/20 04:48 Ordered EKG 12 Lead [EK] Urgent Ther 06/02/20 04:49 Ordered Medication Orders Sodium Chloride (Saline Flush) 10 ml FLUSH Q8HR PRN PRN Reason: keep vein open Last Admin: 06/02/20 04:58 Dose: 10 ml Documented by: SOLIS Labs: Laboratory Tests 06/02/20 06/02/20 Range/Units 04:30 04:30 WBC 8.13 (5.00-10.00) 10^3/uL RBC 4.44 (3.80-5.50) 10^6/uL Hgb 13.4 (12.0-16.0) g/dL Hct 40.2 (37.0-47.0) % MCV 90.5 (82.0-92.0) fL MCH 30.2 (27.0-31.0) pg MCHC 33.3 (32.0-36.0) g/dL RDW 14.0 (11.5-14.5) % Plt Count 247 (150-400) 10^3/uL MPV 9.5 (7.4-10.4) fL Immature Gran % (Auto) 0.2 (0.0-5.0) % Neut % (Auto) 56.1 (50.0-70.0) % Lymph % (Auto) 31.6 (20.0-40.0) % [place] % (Auto) 9.1 H (2.0-8.0) % Eos % (Auto) 2.6 (1.0-3.0) % Baso % (Auto) 0.4 (0.0-1.0) % Neut # (Auto) 4.56 (2.50-7.00) 10^3/uL Lymph # (Auto) 2.57 (1.00-4.00) 10^3/uL [place] # (Auto) 0.74 (0.10-0.80) 10^3/uL Eos # (Auto) 0.21 (0.10-0.30) 10^3/uL Baso # (Auto) 0.03 (0.00-0.10) 10^3/uL Immature Gran # (Auto) 0.02 (0.00-0.50) 10^3/uL Sodium 137 (136-145) mmol/L Potassium 4.2 (3.3-5.3) mmol/L Chloride 100 (98-115) mmol/L Carbon Dioxide 30.1 (21.0-32.0) mmol/L Anion Gap 11.1 (5-15) mmol/L BUN 25 (6-25) mg/dL Creatinine 1.23 H (0.51-1.17) mg/dL Est Cr Clr Drug Dosing 23.15 mL/min Estimated GFR (MDRD) 41 mL/min Glucose 159 H (75 - 99) mg/dL Calcium 9.2 (8.7-10.3) mg/dL Total Bilirubin 0.3 (0.2-1.0) mg/dL AST 21 (15-37) U/L ALT 22 (12-78) U/L Alkaline Phosphatase 37 L (46-116) IU/L Total Protein 7.1 (6.4-8.2) g/dL Albumin 3.57 (3.00-4.80) g/dL Meds: Medications Generic Name Dose Route Start Last Admin Trade Name Freq PRN Reason Stop Dose Admin Sodium Chloride 10 ml 06/02/20 04:48 06/02/20 04:58 Saline Flush FLUSH 10 ml Q8HR PRN Administration keep vein open Discontinued Medications Generic Name Dose Route Start Last Admin Trade Name Freq PRN Reason Stop Dose Admin Hydralazine HCl 5 mg 06/02/20 06:09 06/02/20 06:12 Apresoline IVPUSH 06/02/20 06:10 5 mg ONETIME ONE Administration Losartan Potassium 50 mg 06/02/20 05:37 06/02/20 05:47 Cozaar PO 06/02/20 05:38 50 mg ONETIME ONE Administration Meclizine HCl 25 mg 06/02/20 04:50 06/02/20 04:54 Antivert PO 06/02/20 04:51 25 mg ONETIME ONE Administration Ondansetron HCl 8 mg 06/02/20 04:49 06/02/20 04:55 Zofran IVPUSH 06/02/20 04:50 8 mg ONETIME ONE Administration Departure - Departure Time of Disposition: 06:50 Disposition: Home, Self-Care 01 Condition: Good Clinical Impression: BPPV (benign paroxysmal positional vertigo) Qualifiers: Laterality: left Qualified Code(s): H81.12 - Benign paroxysmal vertigo, left ear Hypertension Qualifiers: Hypertension type: essential hypertension Qualified Code(s): I10 - Essential (primary) hypertension - Discharge Information *PRESCRIPTION DRUG MONITORING PROGRAM REVIEWED*: Not Applicable *COPY OF PRESCRIPTION DRUG MONITORING REPORT IN PATIENT [place]: Not Applicable Prescriptions: Meclizine [Antivert] 25 mg PO Q6H PRN 10 Days #30 tab PRN Reason: Dizziness Instructions: Hypertension, Adult, [id number], Benign Positional Vertigo Forms: ED Department Discharge Additional Instructions: You need to increase your water intake daily. This condition can be caused by not drinking enough water, allowing crystals to form in the inner ear. A prescription for meclizine, dizziness medicine has been sent to [facility]. Continue all of your other medications as directed. If your symptoms have not completely resolved by Thursday morning, please call the hospital to establish a physical therapy appointment to treat the inner ear dizziness crystals. Contact your clinic for recheck on your blood pressure in the next week. You will need to limit your sudden motion, changing from lying and seated positioning, and sudden head turning, specifically to the left. Follow-up as needed, call or return if worsening over the weekend. Sepsis Event Note (ED) - Focused Exam Vital Signs: Vital Signs Temp Pulse Resp BP BP Pulse Ox 06/02/20 06:26 69 174/71 H 06/02/20 05:49 61 20 204/72 H 96 06/02/20 05:47 204/72 H 06/02/20 05:22 61 20 180/50 H 06/02/20 05:08 64 20 198/60 H 96 06/02/20 04:40 36.1 C 96 20 266/128 H 97 - Problem List & Annotations (1) BPPV (benign paroxysmal positional vertigo) SNOMED Code(s): 766631237 Code(s): H81.10 - BENIGN PAROXYSMAL VERTIGO, UNSPECIFIED EAR Status: Acute Priority: High Qualifiers: Laterality: left Qualified Code(s): H81.12 - Benign paroxysmal vertigo, left ear (2) Nausea & vomiting SNOMED Code(s): 44718498 Code(s): R11.2 - NAUSEA WITH VOMITING, UNSPECIFIED Status: Acute Priority: Medium (3) Hypertension SNOMED Code(s): 99120763 Code(s): I10 - ESSENTIAL (PRIMARY) HYPERTENSION Status: Chronic Priority: Medium Qualifiers: Hypertension type: essential hypertension Qualified Code(s): I10 - Essential (primary) hypertension - Problem List Review Problem List Initiated/Reviewed/Updated: Yes - My Orders Last 24 Hours: My Active Orders 06/02/20 04:48 Peripheral IV Care [RC] . DIRECTED Sodium Chloride 0.9% [Saline Flush] 10 ml FLUSH Q8HR PRN Peripheral IV Insertion Adult [OM.PC] Routine 06/02/20 04:49 EKG Documentation Completion [RC] ASDIRECTED EKG 12 Lead [EK] Urgent - Assessment/Plan Last 24 Hours: My Active Orders 06/02/20 04:48 Peripheral IV Care [RC] . DIRECTED Sodium Chloride 0.9% [Saline Flush] 10 ml FLUSH Q8HR PRN Peripheral IV Insertion Adult [OM.PC] Routine 06/02/20 04:49 EKG Documentation Completion [RC] ASDIRECTED EKG 12 Lead [EK] Urgent Plan: You need to increase your water intake daily. This condition can be caused by not drinking enough water, allowing crystals to form in the inner ear. A prescription for meclizine, dizziness medicine has been sent to [facility]. Continue all of your other medications as directed. If your symptoms have not completely resolved by Thursday morning, please call the hospital to establish a physical therapy appointment to treat the inner ear dizziness crystals. Contact your clinic for recheck on your blood pressure in the next week. You will need to limit your sudden motion, changing from lying and seated positioning, and sudden head turning, specifically to the left. Follow-up as needed, call or return if worsening over the weekend.
[2020-06-02] MEDS ORDERED: Sodium Chloride 0.9% 10 ML Syringe FLUSH PRN (04:48)
[2020-06-02] MEDS ORDERED: Ondansetron 4 MG/2 ML SDV IVPUSH ONE (04:49)
[2020-06-02] MEDS ORDERED: Meclizine 25 MG Tab PO ONE (04:50)
[2020-06-02 05:15] LABS: ANION GAP 11.1 mmol/L (5-15)
[2020-06-02] MEDS ORDERED: Losartan 50 MG Tab PO ONE (05:37)
[2020-06-02] MEDS ORDERED: hydrALAZINE 20 MG/ML SDV IVPUSH ONE (06:09)
[2020-06-02 06:43] VITALS: BP 174/59; PULSE 70
== END 2020-06-02 07:02 | disposition home or self-care (01) ==
LOC: KA.ED 04:14
DX: H81.12 Benign paroxysmal vertigo, left ear (principal); I10 Essential (primary) hypertension; I25.10 Atherosclerotic heart disease of native coronary artery without angina pectoris; E11.42 Type 2 diabetes mellitus with diabetic polyneuropathy; E66.9 Obesity, unspecified; K21.9 Gastro-esophageal reflux disease without esophagitis; G43.909 Migraine, unspecified, not intractable, without status migrainosus; Z88.1 Allergy status to other antibiotic agents; Z91.013 Allergy to seafood; Z88.8 Allergy status to other drugs, medicaments and biological substances; Z90.49 Acquired absence of other specified parts of digestive tract; Z68.36 Body mass index [BMI] 36.0-36.9, adult; Z79.899 Other long term (current) drug therapy
CPT/HCPCS: 80053; 85025; 93005; 96374; 96375; 99284; A9270; J0360; J2405

== ENCOUNTER 2022-02-12 11:34 | Inpatient (IN) | payer MEDICARE, OTHER, MEDICAID ==
[2022-02-12] MEDS ORDERED: Ondansetron 4 MG/2 ML SDV IV PRN (12:12)
[2022-02-12] MEDS ORDERED: Sodium Chloride 0.9% 1,000 ML IV SCH (12:15)
[2022-02-12] MEDS ORDERED: Diatrizoate Meglumine/Diatrizoate Sodium 37% 30 ML Bottle PO ONE (12:35)
[2022-02-12] MEDS ORDERED: Iopamidol 755 Mg/ML 75 ML Bottle IVPUSH ONE (12:35)
[2022-02-12] MEDS ORDERED: Sodium Chloride 0.9% 50 ML IV SCH (12:45)
[2022-02-12] MEDS ORDERED: Glucagon,Human Recombinant 1 MG Vial IM PRN (13:08)
[2022-02-12] MEDS ORDERED: 50% Dextrose in Water 50 ML Syringe IVPUSH PRN (13:08)
[2022-02-12 15:27] VITALS: BP 159/83; PULSE 92
[2022-02-12] MEDS ORDERED: Insulin Lispro 100 Unit/ML 3 ML KwikPen SUBCUT SCH (18:00)
== END 2022-02-12 17:35 | DRG 381 ==
LOC: KA.MS 11:51
PROVIDERS: ADMIT Nurse Practitioner Family; ATTEND Student in an Organized Health Care Education/Training Program
DX: K31.5 Obstruction of duodenum (principal); I13.0 Hypertensive heart and chronic kidney disease with heart failure and stage 1 through stage 4 chronic kidney disease, or unspecified chronic kidney disease; I50.32 Chronic diastolic (congestive) heart failure; K31.1 Adult hypertrophic pyloric stenosis; K59.09 Other constipation; N18.31 Chronic kidney disease, stage 3a; K21.9 Gastro-esophageal reflux disease without esophagitis; J42 Unspecified chronic bronchitis; Z20.822 Contact with and (suspected) exposure to COVID-19; E11.42 Type 2 diabetes mellitus with diabetic polyneuropathy; Z79.899 Other long term (current) drug therapy; Z85.118 Personal history of other malignant neoplasm of bronchus and lung; E78.00 Pure hypercholesterolemia, unspecified; R59.0 Localized enlarged lymph nodes; Z91.013 Allergy to seafood; Z88.8 Allergy status to other drugs, medicaments and biological substances; Z88.1 Allergy status to other antibiotic agents; Z79.01 Long term (current) use of anticoagulants
CPT/HCPCS: 74177; J1815-GY; J7030; Q9963; Q9967; U0002